=== PATIENT | female | born 1995 | race Hispanic/Latino ===

== ENCOUNTER 2020-05-25 01:00 | Emergency (ER) | payer OTHER ==
[~2020-05-25] VITALS: Ht 165.1 cm; Wt 117.9 kg
--- NOTE | 2020-05-25 01:11 | Emergency Department Note ---
History of Present Illnes History of Present Illness Chief Complaint: Abdominal Complaints History of Present Illness This is a 25 year old female at seven weeks gestation reports "a little spotting" x1 day following urination; pt also reports burning with urination x1 hr and intermittent c ramps x1 week; . Historian: Patient Arrival Mode: Car Onset (how long ago): day(s) (1) Location: suprapubic Quality: cramping/pain Radiation: Reports non-radiation Severity: mild Onset quality: gradual Duration (how long): day(s) (1) Timing of current episode: intermittent Progression: unchanged Chronicity: new Context: Denies recent illness, Denies recent surgery, Denies recent travel Relieving factors: none Exacerbating factors: other (pain with urintation) Associated symptoms: Reports denies other symptoms Treatments prior to arrival: none Past Medical/Family History Physician Review I have reviewed the patient's past medical and family history. Any updates have been documented here. Past Medical History Recent Fever: No Clinical Suspicion of Infectio: No New/Unexplained Change in Ment: No Past Medical History: None Past Surgical History: None, Social History Smoking Cessation: Never Smoker Alcohol Use: None Any Illegal Drug Use: No Other Last Tetanus: UNK Any Pre-Existing Lines (PICC,: No Review of Systems Review of Systems Constitutional: Reports no symptoms EENTM: Reports no symptoms Cardiovascular: Reports no symptoms Respiratory: Reports no symptoms Gastrointestinal: Reports no symptoms Genitourinary: Reports as per HPI Musculoskeletal: Reports no symptoms Integumentary: Reports no symptoms Neurological: Reports no symptoms Psychological: Reports no symptoms Endocrine: Reports no symptoms Hematological/Lymphatic: Reports no symptoms Physical Exam Related Data Allergies: Coded Allergies: No Known Allergies (Unverified , 01/29/20) Triage Vital Signs Vital Signs Date Time Temp Pulse Resp B/P (MAP) Pulse Ox O2 Delivery O2 Flow Rate FiO2 05/25/20 01:04 98.6 80 17 129/82 100 Room Air Vital signs reviewed: Yes Physical Exam CONSTITUTIONAL Constitutional: Present well-developed, Present well-nourished; Absent distressed HENT HENT: Present normocephalic, Present atraumatic, Present oropharynx clear/moist, Present nose normal HENT L/R: Present left ext ear normal, Present right ext ear normal EYES Eyes: Reports PERRL, Reports conjunctivae normal NECK Neck: Present ROM normal PULMONARY Pulmonary: Present effort normal, Present breath sounds normal CARDIOVASCULAR Cardiovascular: Present regular rhythm, Present heart sounds normal, Present capillary refill normal, Present normal rate GASTROINTESTINAL Abdominal: Present soft, Present nontender, Present bowel sounds normal GENITOURINARY Genitourinary: Present exam deferred SKIN Skin: Present warm, Present dry MUSCULOSKELETAL Musculoskeletal: Present ROM normal NEUROLOGICAL Neurological: Present alert, Present oriented x 3, Present no gross motor or sensory deficits PSYCHOLOGICAL Psychological: Present mood/affect normal, Present judgement normal Results Laboratory Laboratory Laboratory Tests Test 05/25/20 01:10 White Blood Count 11.71 x10e3/uL (4.8-10.8) Red Blood Count 4.35 x10e6/uL (3.6-5.1) Hemoglobin 12.5 g/dL (12.0-16.0) Hematocrit 38.0 % (34.2-44.1) Mean Corpuscular Volume 87.4 fL (81-99) Mean Corpuscular Hemoglobin 28.7 pg (28-32) Mean Corpuscular Hemoglobin Concent 32.9 g/dL (31-35) Red Cell Distribution Width 13.3 % (11.7-14.4) Platelet Count 324 x10e3/uL (140-360) Neutrophils (%) (Auto) 65.1 % (38.7-80.0) Lymphocytes (%) (Auto) 22.5 % (18.0-39.1) Monocytes (%) (Auto) 9.6 % (4.4-11.3) Eosinophils (%) (Auto) 1.7 % (0.0-6.0) Basophils (%) (Auto) 0.5 % (0.0-1.0) Neutrophils # (Auto) 7.6 (2.1-6.9) Lymphocytes # (Auto) 2.6 (1.0-3.2) Monocytes # (Auto) 1.1 (0.2-0.8) Eosinophils # (Auto) 0.2 (0.0-0.4) Basophils # (Auto) 0.1 (0.0-0.1) Absolute Immature Granulocyte (auto 0.07 x10e3/uL (0-0.1) Urine Color Yellow (YELLOW) Urine Clarity Clear (CLEAR) Urine pH 7 (5 - 7) Urine Specific [place] 1.020 (1.010-1.025) Urine Protein Negative (NEGATIVE) Urine Glucose (UA) Negative (NEGATIVE) Urine Ketones Negative (NEGATIVE) Urine Blood Small (NEGATIVE) Urine Nitrite Negative (NEGATIVE) Urine Bilirubin Negative (NEGATIVE) Urine Urobilinogen 0.2 mg/dL (0.2 - 1) Urine Leukocyte Esterase Small (NEGATIVE) Urine RBC 6-10 /HPF (0-5) Urine WBC 6-10 /HPF (0-5) Urine Epithelial Cells Many /LPF (NONE) Urine Bacteria Few /HPF (NONE) Human Chorionic Gonadotropin, Quant 33593.41 mIU/mL (0-10) Lab results reviewed: Yes Assessment & Plan Medical Decision Making MDM pt who is approximately 7 weeks gestation with dysuria and spotting, spotting only noted when urinating cbc, quant hcg, ua ordered to eval for uti, anemia, hormone level Assessment & Plan Final Impression: (1) Threatened (2) UTI (urinary tract infection) Depart Disposition: HOME, SELF-CARE Last Vital Signs Date Time Temp Pulse Resp B/P (MAP) Pulse Ox O2 Delivery O2 Flow Rate FiO2 05/25/20 01:04 98.6 80 17 129/82 100 Room Air YONATAN YU MD May 25, 2020 01:11
[2020-05-25 01:24] LABS: BASOPHILS # (AUTO) 0.1 (0.0-0.1); BASOPHILS % 0.5 % (0.0-1.0); EOSINOPHILS # (AUTO) 0.2 (0.0-0.4); EOSINOPHILS % 1.7 % (0.0-6.0); HEMOGLOBIN 12.5 g/dL (12.0-16.0); LYMPHOCYTES # (AUTO) 2.6 (1.0-3.2); LYMPHOCYTES % 22.5 % (18.0-39.1); MEAN CORPUSCULAR HEMOGLOBIN 28.7 pg (28-32); MEAN CORPUSCULAR HGB CONC 32.9 g/dL (31-35); MEAN CORPUSCULAR VOLUME 87.4 fL (81-99); MONOCYTES # (AUTO) 1.1 (0.2-0.8); MONOCYTES % 9.6 % (4.4-11.3); NEUTROPHILS # (AUTO) 7.6 (2.1-6.9); NEUTROPHILS % 65.1 % (38.7-80.0); PLATELET COUNT 324 x10e3/uL (140-360); RED BLOOD COUNT 4.35 x10e6/uL (3.6-5.1); RED CELL DISTRIBUTION WIDTH 13.3 % (11.7-14.4)
[2020-05-25 01:26] LABS: BILIRUBIN,URINE NEGATIVE (NEGATIVE); CLARITY,URINE CLEAR (CLEAR); COLOR,URINE YELLOW (YELLOW); KETONES,URINE NEGATIVE (NEGATIVE); LEUKOCYTE ESTERASE ,URINE SMALL (NEGATIVE); NITRITE,URINE NEGATIVE (NEGATIVE); PROTEIN,URINE DIPSTICK NEGATIVE (NEGATIVE); URINE UROBILINOGEN 0.2 mg/dL (0.2 - 1)
[2020-05-25 01:34] LABS: BACTERIA,URINE FEW /HPF; EPITHELIAL CELLS,URINE MANY /LPF
--- OUTSIDE RECORDS SUMMARY | 2020-05-25 01:39 | XMS REPORT | Continuity of Care Document ---
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 Name Role Phone [employer] Unavailable Un available Problems Problem Status Onset Date Classification Date Reported Comments Source LOF Active 0 12/01/2018 [facility] Decreased movements, unspecified t rimester, not applicable or unspecified 10/29/2018 11/01/2018 [facility] DECREASED FM Active 10/29/2018 [facility] Vomiting of , unspecified 10/23/2018 10/25/2018 [facility] WEAK, DIZZY Active 10/22/2018 [facility] Antepartum hemorrhage, unspecified, unsp ecified trimester 09/15/2018 09/18/2018 [facility] BLEEDING Active 09/15/2018 [facility] Patient currently (finding) Active 03/09/2018 Problem 11/01/2018 [facility] Hypertensive disorder, systemic arterial (disorder) Resolved Problem 11/01/2018 [facility] Medications Medication Details Route Status Patient Instructions Ordering Provider Order Date Source PreNata oral tablet, chewable 1 tab, CHEW, Daily, 0 Refill(s) Active 09/15/2018 [facility] Allergies, Adverse Reactions, Alerts No Known Medication Allergies Immunizations No Data Provided for This Section Results Order Name Results Value Reference Range Date Interpretation Comments Source CHEM PANEL eGFR 143 10/23/2018 Result Comment: The eGFR is calculated using the CKD-EPI formula. In most young, healthy individuals the eGFR will be >90 mL/min/1.73m2. The eGFR declines with age. An eGFR of 60-89 may be normal in some populations, particularly the elderly, for whom the CKD-EPI formula has not been extensively validated. Use of the eGFR is not recommended in the following populations:

Individuals with unstable creatinine concentrations, including patients and those with serious co-morbid conditions.

Patients with extremes in muscle mass or diet.

The data above are obtained from the National Kidney Disease Education Program (NKDEP) which additionally recommends that when the eGFR is used in patients with extremes of body mass index for purposes of drug dosing, the eGFR should be multiplied by the estimated BMI. [facility] CHEM PANEL Albumin Lvl 2.8 3.5 - 5.0 10/23/2018 [facility] CHEM PANEL ALT 17 0 - 65 10/23/2018 [facility] CHEM PANEL Calcium Lvl 8.8 8.5 - 10.5 10/23/2018 [facility] CHEM PANEL Total Protein 6.8 6.4 - 8.4 10/23/2018 [facility] CHEM PANEL Bili Total 0.2 0.2 - 1.3 10/23/2018 [facility] CHEM PANEL Alk Phos 94 39 - 136 10/23/2018 [facility] CHEM PANEL AST 11 0 - 37 10/23/2018 [facility] CHEM PANEL Creatinine Lvl 0.45 0.50 - 1.40 10/23/2018 [facility] CHEM PANEL Sodium Lvl 139 135 - 145 10/23/2018 [facility] CHEM PANEL Glucose Lvl 76 70 - 99 10/23/2018 [facility] CHEM PANEL BUN 9 7 - 22 10/23/2018 [facility] CHEM PANEL Chloride Lvl 107 95 - 109 10/23/2018 [facility] CHEM PANEL CO2 20 24 - 32 10/23/2018 [facility] CHEM PANEL Potassium Lvl 3.7 3.5 - 5.1 10/23/2018 [facility] CHEM PANEL Globulin 4.0 2.7 - 4.2 10/23/2018 [facility] CHEM PANEL AGAP 15.7 10.0 - 20.0 10/23/2018 [facility] CHEM PANEL B/C Ratio 20 6 - 25 10/23/2018 [facility] CHEM PANEL A/G Ratio 0.7 0.7 - 1.6 10/23/2018 [facility] CHEM PANEL Amylase Lvl 62 25 - 115 10/23/2018 [facility] CHEM PANEL Lipase Lvl 130 73 - 393 10/23/2018 [facility] HEMATOLOGY Basophils # 0.1 0.0 - 0.2 10/23/2018 [facility] HEMATOLOGY Eosinophils 0.6 0.0 - 4.0 10/23/2018 [facility] HEMATOLOGY Basophils 0.5 0.0 - 1.0 10/23/2018 [facility] HEMATOLOGY Eosinophils # 0.1 0.0 - 0.5 10/23/2018 [facility] HEMATOLOGY Lymphocytes # 1.8 1.0 - 5.5 10/23/2018 [facility] HEMATOLOGY Neutrophils # 9.7 1.5 - 8.1 10/23/2018 [facility] HEMATOLOGY Monocytes # 1.3 0.0 - 0.8 10/23/2018 [facility] HEMATOLOGY Lymphocytes 13.7 20.0 - 40.0 10/23/2018 [facility] HEMATOLOGY Segs 75.0 45.0 - 75.0 10/23/2018 [facility] HEMATOLOGY Monocytes 10.2 2.0 - 12.0 10/23/2018 [facility] HEMATOLOGY MPV 10.1 7.4 - 10.4 10/23/2018 [facility] HEMATOLOGY MCHC 33.3 32.0 - 36.0 10/23/2018 [facility] HEMATOLOGY RDW 14.1 11.5 - 14.5 10/23/2018 [facility] HEMATOLOGY MCH 28.2 27.0 - 31.0 10/23/2018 [facility] HEMATOLOGY Platelet 284 133 - 450 10/23/2018 [facility] HEMATOLOGY RBC 4.37 4.20 - 5.40 10/23/2018 [facility] HEMATOLOGY WBC 13.0 3.7 - 10.4 10/23/2018 [facility] HEMATOLOGY Hct 37.1 36.0 - 48.0 10/23/2018 [facility] HEMATOLOGY Hgb 12.3 12.0 - 16.0 10/23/2018 [facility] HEMATOLOGY MCV 84.7 80.0 - 98.0 10/23/2018 [facility] Pathology Reports No Data Provided for This Section Diagnostic Reports No Data Provided for This Section Consultation Notes No Data Provided for This Section Discharge Summaries No Data Provided for This Section History and Physicals No Data Provided for This Section Vital Signs Vital Sign Value Date Comments Source Heart Rate 86 10/29/2018 [facility] Systolic (mm Hg) 124 10/29/2018 [facility] Diastolic (mm Hg) 60 10/29/2018 [facility] Heart Rate 100 10/29/2018 [facility] Systolic (mm Hg) 125 10/29/2018 [facility] Diastolic (mm Hg) 56 10/29/2018 [facility] Systolic (mm Hg) 118 10/29/2018 [facility] Diastolic (mm Hg) 70 10/29/2018 [facility] Heart Rate 105 10/29/2018 [facility] Temperature Oral (F) 98.7 F 10/29/2018 [facility] Respitory Rate 18 10/29/2018 [facility] Weight 125 10/29/2018 [facility] BMI Calculated 45.86 10/29/2018 [facility] Height 165.1 cm 10/29/2018 [facility] Systolic (mm Hg) 121 10/23/2018 [facility] Diastolic (mm Hg) 57 10/23/2018 [facility] Systolic (mm Hg) 119 10/23/2018 [facility] Diastolic (mm Hg) 62 10/23/2018 [facility] Heart Rate 78 10/23/2018 [facility] Systolic (mm Hg) 119 10/23/2018 [facility] Diastolic (mm Hg) 60 10/23/2018 [facility] Heart Rate 78 10/23/2018 [facility] Respitory Rate 18 10/23/2018 [facility] Temperature Oral (F) 97.8 F 10/23/2018 [facility] Height 165.1 cm 10/23/2018 [facility] Heart Rate 92 10/23/2018 [facility] BMI Calculated 45.52 10/23/2018 [facility] Weight 124.091 10/23/2018 [facility] Systolic (mm Hg) 95 09/15/2018 [facility] Diastolic (mm Hg) 51 09/15/2018 [facility] Systolic (mm Hg) 105 09/15/2018 [facility] Diastolic (mm Hg) 55 09/15/2018 [facility] Systolic (mm Hg) 119 09/15/2018 [facility] Diastolic (mm Hg) 54 09/15/2018 [facility] Weight 125 09/15/2018 [facility] Temperature Oral (F) 99.1 F 09/15/2018 [facility] Respitory Rate 18 09/15/2018 [facility] BMI Calculated 45.86 09/15/2018 [facility] Height 165.1 cm 09/15/2018 [facility] Heart Rate 104 09/15/2018 [facility] Encounters Location Location Details Encounter Type Encounter Number Reason For Visit Attending Provider ADM Date DC Date Status Source [facility] Emergency [id number] Gabriella Mansfield 09/15/2018 09/15/2018 [facility] Emergency [id number] Sarika Hernandez 10/23/2018 10/23/2018 [facility] Emergency [id number] Hugh Caiwell 10/29/2018 10/29/2018 [facility] Procedures No Data Provided for This Section Assessment and Plan No Data Provided for This Section Plan of Care No Data Provided for This Section Social History Social History Date Source Social History TypeResponse Substance Abuse Use: None. Sexual Sexually active: Yes. Alcohol Never Smoking Status Never smoker; Exposure to Tobacco Smoke None; Cigarette Smoking Last 365 Days No; Reg Smoking Cessation Counseling No entered on: 10/29/18 09/15/2018 [facility] Family History No Data Provided for This Section Advance Directives No Data Provided for This Section Functional Status No Data Provided for This Section
--- OUTSIDE RECORDS SUMMARY | 2020-05-25 01:39 | XMS REPORT | Continuity of Care Document ---
Author Author [facility] t Organization [facility] Address [address] [place] [address] Phone Unavailable Care Team Providers Care Rn Charge Name Role Phone NONSTAFF PCP Unavailable Mike LONGORIA, Juanpablo Driscoll Attphys Rodríguez COPPOLA, Melania Attphys Unavailable Pati LONGORIA, Fahad Attphys Edna SAMUEL, Hyun Attphys Unavailable Sameer RAY, Lorenzo Attphys Jasper LONGORIA, Brittany Easley Attphys Valentín LONGORIA, Tobias Marinelli Attphys KELTON BONE M.D. Attphys Unavailable CAFETERIA TEAM LEADER, ROOM1 Attphys Unavailable CAFETERIA TEAM LEADER, ROOM3 Attphys Unavailable RONEN BENSON NP Attphys Unavailable Leobardo Edward Attphys Arlene Hernandez Attphys , PROVIDER Attphys Unavailable Monique Mansfield Attphys CAFETERIA TEAM LEADER, ROOM4 Attphys Unavailable CHER SIDDIQI M.D. Attphys Unavailable Payers Payer Name Policy Type Policy Number Effective Date Expiration Date S jen UHCUMR HM BENEFIT [id number] 2018-PresentPPO [id number] 2018 00:00:00 [place] CIGNACIGNA/ALLEGIANCE HM BENEFIT [id number] 2019-Pr esentPPO [id number] 2020 00:00:00 [place] Umr Ppo [id number] 2018 00:00:00 [facility] Problems Condition Name Condition Details Condition Category Status Onset Date Resolution Date Last Treatment Date Treating Clinician Comments Source LOF LOF Active 12/01/2018 [facility] Diagnosis Active 2018-12-01 00:00:00 2018-12-30 09:05:00 Jana Burnette DECREASED FM DECR EASED FM Active 10/29/2018 [facility] Diagnosis Active 2018-10-29 00:00:00 2019-06-10 14:46:00 Jana Burnette WEAK, DIZZY WEAK , DIZZY Active 10/22/2018 [facility] Diagnosis Active 2018-10-22 00:00:00 2019-07-28 15:32:00 Jana Burnette BLEEDING BLEE DING Active 09/15/2018 [facility] Diagnosis Active 2018-09-15 00:00:00 2018-09-22 08:53:00 [facility] Patient currently (finding) Patient currently (finding) Active 03/09/2018 Problem 11/01/2018 [facility] Problem Active 2018-03-09 00:00:00 2018-11-01 00:42:11 Jana Burnette Fatigue Fatigue Disease Active 2016-12-26 00:00:00 [facility] [place] Genital herpes simplex Problem Active [facility] Urinary tract infection Problem Active [facility] Chronic hypertension Chronic hypertension Problem Active [facility] History of Encounter for confirmation of test result with physical examination History of Encounter for confirmation of test result with physical examination [facility] of First trimester History of First trimes ter Problem Resolved [facility] Encounter for supervision of normal first in third trimester Encounter for supervision of normal first in third trimester Problem Active [facility] History of candidal vulvovaginitis History of candidal vulvovagi nitis Problem Resolved [facility] Heart burn Heart burn Problem Active [facility] Breech presentation, single or unspecified fetus Breec h presentation, single or unspecified fetus Problem Active [facility] Nausea and vomiting of , antepartum Nausea an d vomiting of , antepartum Problem Active [facility] Postoperative examination Postoperative examination Problem Active [facility] Encounter for visit Encounter for visit Problem Active [facility] Nexplanon insertion Nexplanon insertion Problem Active [facility] Decreased movements, unspecified trimester, not applicable or unspecified Decreased movements, unspecified trimester, not applicable or unspecified 10/29/2018 11/01/2018 [facility] Problem 2018-10-29 05:00:00 2018-11-01 00:42:11 2018-11-01 00:42:11 [facility] Vomiting of , unspecified Vomiting of , unspecified 10/23/2018 10/25/2018 [facility] Problem 2018-10-23 06:00:00 2018-10-25 22:16:30 2018-10-25 22:16:30 [facility] Antepartum hemorrhage, unspecified, unspecified trimes ter Antepartum hemorrhage, unspecified, unspecified trimester 09/15/2018 09/18/2018 [facility] Problem 2018-09-15 06:00:00 2018-09 02:09:39 2018-09-18 02:09:39 [facility] Allergies, Adverse Reactions, Alerts Allergy Name Allergy Type Status Severity Reaction(s) Onset Date Inacti ve Date Treating Clinician Comments Source No Known Allergies DA Active U 2011-12-12 00:00:00 [facility] Family History Family Member Diagnosis Comments Start Date Stop Date Source Mother Family history of hypertension [facility] Father Family history of hypertension [facility] Father Family history of diabetes mellitus [facility] Natural brother No Known Problems [place] Natural father Diabetes [facility] thodist Natural father Hypertension [place] Druze Natural mother Hypertension Ara[place]jo Druze Natural mother Thyroid disease [place] Natural sister No Known Problems Julia bueno Druze Social History Social Habit Start Date Stop Date Quantity Comments Source Sex Assigned At Julia bueno Druze Tobacco use and exposure 2019-10-28 00:00:00 2019-10-28 00:00:00 June r used [place] Alcohol intake 2019-10-28 00:00:00 2019-10-28 00:00:00 Current drinker of alcohol (finding) [facility] Social History 2018-09-15 19:49:12 2018-09-15 19:49:12 [facility] Alcohol Comment 2016-12-26 00:00:00 2016-12-26 00:00:00 social [place] Smoking Status Start Date Stop Date Source Never smoker Van nunez Medications Ordered Medication Name Filled Medication Name Start Date Stop Da te Current Medication? Ordering Clinician Indication Dosage Frequency Signature (SIG) Comments Components Source cholecalciferol, vitamin D3, 1,250 mcg (50,000 unit) capsule 2020-05-02 00:00:00 Yes TAKE 1 CAPSULE BY MOUTH ONCE A WEEK [place] cholecalciferol, vitamin D3, 1,250 mcg (50,000 unit) capsule 2020-03-13 00:00:00 2020-05-02 00:00:00 No 36815H Q7D TAKE 1 CAPSULE (50,000 UNITS TOTAL) BY MOUTH ONCE A WEEK FOR 60 DAYS. [facility] [place] cholecalciferol, vitamin D3, 1,250 mcg (50,000 unit) capsule 2020-01-20 00:00:00 2020-03-13 00:00:00 No [id number] Q7D Take 1 capsule (50,000 Units total) by mouth once a week for 60 days. [place] acetaminophen (TYLENOL EXTRA STRENGTH) 500 MG tablet 2019-05-29 00:00:00 2019-06-28 23:59:00 No 1000mg Q6H Take 2 tablets (1,000 mg total) by mouth every 6 (six) hours as needed for moderate pain for up to 30 days. [place] ibuprofen (ADVIL) 600 MG tablet 2019-05-29 00:00:00 23:59:00 No 600mg Q8H Take 1 tablet (600 m g total) by mouth every 8 (eight) hours as needed for moderate pain for up to 30 days. Julia badilloruchi Castorena lidocaine 3 % cream 2019-05-29 00:00:00 2019-06-28 23:59:00 No 1{application} QD Apply 1 application topically daily for 30 days. [place] valACYclovir (VALTREX) 1000 MG tablet 2019-05-29 00:00 :00 2019-06-08 23:59:00 No 1000mg Q.5D Take 1 tablet ( 1,000 mg total) by mouth 2 (two) times a day for 10 days. [place] sulfamethoxazole-trimethoprim (BACTRIM DS) 800-160 mg per ta blet 2019-05-29 00:00:00 2019-06-05 23:59:00 No 1{tbl} Q.5D Take 1 tablet by mouth 2 (two) times a day for 7 days. smx-tmp DS (BACTRIM) 800-160 mg tabs (1tab q12 D10) [place] PreNata oral tablet, chewable 2018-09-15 19:51:00 Yes 1 tab, CHEW, Daily, 0 Refill(s) [facility] Immunizations Ordered Immunization Name Filled Immunization Name Date Status Comments Source Tdap (Adacel) 2018-10-15 00:00:00 Completed [facility] Fluzone Quadrivalent 0.5 ML Intramuscular Suspension Prefill ed Syringe 2018-05-18 00:00:00 Completed [facility] Vital Signs Vital Name Observation Time Observation Value Comments Source Weight 2020-01-29 02:07:00 260 [lb_av] [facility] BMI (Body Mass Index) 2020-01-29 02:07:00 43.3 kg/m2 [facility] Systolic blood pressure 2019-10-28 14:44:00 113 mm[Hg] [place] Diastolic blood pressure 2019-10-28 14:44:00 76 mm[Hg] [place] Heart rate 2019-10-28 14:44:00 92 /min [place] Body height 2019-10-28 14:44:00 165.1 cm [place] Body weight 2019-10-28 14:44:00 120.657 kg [place] BMI 2019-10-28 14:44:00 44.26 kg/m2 [place] Body temperature 2019-05-29 09:23:00 36.83 Mikayla [place] Respiratory rate 2019-05-29 09:23:00 18 /min [place] Oxygen saturation in Arterial blood by Pulse oximetry 2018-08 09:23:00 98 /min [place] Druze BP Systolic 2019-01-12 13:57:00 129 mm[Hg] Location: RUE; Positi on: Sitting [facility] BP Diastolic 2019-01-12 13:57:00 85 mm[Hg] Location: RUE; Positi on: Sitting [facility] Height 2019-01-12 13:57:00 65 [in_us] [facility] Weight 2019-01-12 13:57:00 256.4 [lb_av] [facility] Body Mass Index Calculated 2019-01-12 13:57:00 42.67 kg/m2 [facility] Temperature 2019-01-12 13:57:00 98.6 [degF] Method: Oral [facility] Heart Rate 2019-01-12 13:57:00 81 /min [facility] BP Systolic 2018-12-08 15:39:00 117 mm[Hg] Location: RUE; Positi on: Sitting [facility] BP Diastolic 2018-12-08 15:39:00 81 mm[Hg] Location: RUE; Positi on: Sitting [facility] Height 2018-12-08 15:39:00 65 [in_us] [facility] Weight 2018-12-08 15:39:00 263.25 [lb_av] [facility] Body Mass Index Calculated 2018-12-08 15:39:00 43.81 kg/m2 [facility] Temperature 2018-12-08 15:39:00 99 [degF] Method: Oral [facility] Heart Rate 2018-12-08 15:39:00 91 /min [facility] ty [facility] BP Systolic 2018-11-30 13:28:00 132 mm[Hg] Location: RUE; Positi on: Sitting [facility] BP Diastolic 2018-11-30 13:28:00 86 mm[Hg] Location: RUE; Positi on: Sitting [facility] Height 2018-11-30 13:28:00 65 [in_us] [facility] Weight 2018-11-30 13:28:00 277 [lb_av] [facility] Body Mass Index Calculated 2018-11-30 13:28:00 46.1 kg/m2 [facility] Heart Rate 2018-11-30 13:28:00 123 /min [facility] BP Systolic 2018-11-09 13:46:00 106 mm[Hg] Location: RUE; Positi on: Sitting [facility] BP Diastolic 2018-11-09 13:46:00 71 mm[Hg] Location: RUE; Positi on: Sitting [facility] Height 2018-11-09 13:46:00 65 [in_us] [facility] Weight 2018-11-09 13:46:00 275.2 [lb_av] [facility] Body Mass Index Calculated 2018-11-09 13:46:00 45.8 kg/m2 [facility] Heart Rate 2018-11-09 13:46:00 106 /min [facility] Heart Rate 2018-10-29 20:30:00 [facility] Systolic (mm Hg) 2018-10-29 20:30:00 Maurice rial Vasile Diastolic (mm Hg) 2018-10-29 20:30:00 Mem [facility] Heart Rate 2018-10-29 20:00:00 [facility] Systolic (mm Hg) 2018-10-29 20:00:00 Maurice rial [facility] Diastolic (mm Hg) 2018-10-29 20:00:00 Mem [facility] Systolic (mm Hg) 2018-10-29 19:17:00 Maurice rial [facility] Diastolic (mm Hg) 2018-10-29 19:17:00 [facility] Heart Rate 2018-10-29 19:17:00 [facility] Temperature Oral (F) 2018-10-29 19:17:00 98.7 F [facility] Respitory Rate 2018-10-29 19:17:00 [facility] Weight 2018-10-29 19:17:00 [facility] BMI Calculated 2018-10-29 19:17:00 [facility] Height 2018-10-29 19:17:00 165.1 cm [facility] BP Systolic 2018-10-29 13:21:00 123 mm[Hg] Location: RUE; Positi on: Sitting [facility] BP Diastolic 2018-10-29 13:21:00 84 mm[Hg] Location: RUE; Positi on: Sitting [facility] Height 2018-10-29 13:21:00 65 [in_us] [facility] Weight 2018-10-29 13:21:00 278.125 [lb_av] [facility] Body Mass Index Calculated 2018-10-29 13:21:00 46.28 kg/m2 [facility] Temperature 2018-10-29 13:21:00 98.3 [degF] Method: Oral [facility] Heart Rate 2018-10-29 13:21:00 106 /min [facility] Systolic (mm Hg) 2018-10-23 06:30:00 Maurice rial [facility] Diastolic (mm Hg) 2018-10-23 06:30:00 Mem o[facility] Systolic (mm Hg) 2018-10-23 04:33:00 Maurice [facility] [place] Diastolic (mm Hg) 2018-10-23 04:33:00 Mem o[facility] Heart Rate 2018-10-23 04:33:00 [facility] Systolic (mm Hg) 2018-10-23 03:30:00 Maurice rial [facility] Diastolic (mm Hg) 2018-10-23 03:30:00 [facility] [place] Heart Rate 2018-10-23 03:30:00 [facility] Respitory Rate 2018-10-23 02:47:00 Skinny al Vas[place] Temperature Oral (F) 2018-10-23 02:47:00 97.8 F [facility] Height 2018-10-23 02:47:00 165.1 cm [facility] Heart Rate 2018-10-23 02:47:00 [facility] BMI Calculated 2018-10-23 02:47:00 [facility] [place] Weight 2018-10-23 02:47:00 [facility] BP Systolic 2018-10-15 13:36:00 118 mm[Hg] Location: RUE; Positi on: Sitting [facility] BP Diastolic 2018-10-15 13:36:00 87 mm[Hg] Location: RUE; Positi on: Sitting [facility] Height 2018-10-15 13:36:00 65 [in_us] [facility] Weight 2018-10-15 13:36:00 276 [lb_av] [facility] Body Mass Index Calculated 2018-10-15 13:36:00 45.93 kg/m2 [facility] Temperature 2018-10-15 13:36:00 98.7 [degF] Method: Oral [facility] Heart Rate 2018-10-15 13:36:00 118 /min [facility] Systolic (mm Hg) 2018-09-15 21:00:00 Maurice rial [place] Diastolic (mm Hg) 2018-09-15 21:00:00 Mem orial [place] Systolic (mm Hg) 2018-09-15 20:30:00 Maurice [facility] [place] Diastolic (mm Hg) 2018-09-15 20:30:00 Mem [facility] [place] Systolic (mm Hg) 2018-09-15 20:00:00 Maurice [facility] [place] Diastolic (mm Hg) 2018-09-15 20:00:00 Mem [facility] Weight 2018-09-15 19:40:00 [facility] Temperature Oral (F) 2018-09-15 19:40:00 99.1 F [facility] Respitory Rate 2018-09-15 19:40:00 Skinny al [facility] BMI Calculated 2018-09-15 19:40:00 Skinny [facility] [place] Height 2018-09-15 19:40:00 165.1 cm [facility] Heart Rate 2018-09-15 19:40:00 [facility] BP Systolic 2018-09-10 11:32:00 120 mm[Hg] Location: GUSTAVO Womack on: Sitting [facility] BP Diastolic 2018-09-10 11:32:00 83 mm[Hg] Location: GUSTAVO Womack on: Sitting [facility] Height 2018-09-10 11:32:00 65 [in_us] [facility] Weight 2018-09-10 11:32:00 275 [lb_av] [facility] Body Mass Index Calculated 2018-09-10 11:32:00 45.76 kg/m2 [facility] Heart Rate 2018-09-10 11:32:00 112 /min [facility] BP Systolic 2018-08-13 11:47:00 115 mm[Hg] Location: LUE; Positi on: Sitting [facility] BP Diastolic 2018-08-13 11:47:00 78 mm[Hg] Location: LUE; Positi on: Sitting [facility] Height 2018-08-13 11:47:00 65 [in_us] [facility] Weight 2018-08-13 11:47:00 274.125 [lb_av] [facility] Body Mass Index Calculated 2018-08-13 11:47:00 45.62 kg/m2 [facility] Temperature 2018-08-13 11:47:00 98.9 [degF] Method: Oral [facility] Heart Rate 2018-08-13 11:47:00 106 /min [facility] BP Systolic 2018-07-14 11:18:00 128 mm[Hg] Location: RLE; Positi on: Sitting [facility] BP Diastolic 2018-07-14 11:18:00 82 mm[Hg] Location: RLE; Positi on: Sitting [facility] Height 2018-07-14 11:18:00 65 [in_us] [facility] Weight 2018-07-14 11:18:00 270 [lb_av] [facility] Body Mass Index Calculated 2018-07-14 11:18:00 44.93 kg/m2 [facility] Temperature 2018-07-14 11:18:00 98 [degF] [facility] Heart Rate 2018-07-14 11:18:00 99 /min [facility] BP Systolic 2018-06-18 12:17:00 125 mm[Hg] Location: LUE; Positi on: Sitting [facility] BP Diastolic 2018-06-18 12:17:00 84 mm[Hg] Location: LUE; Positi on: Sitting [facility] Height 2018-06-18 12:17:00 65 [in_us] [facility] Weight 2018-06-18 12:17:00 266 [lb_av] [facility] Body Mass Index Calculated 2018-06-18 12:17:00 44.27 kg/m2 [facility] Temperature 2018-06-18 12:17:00 98.2 [degF] Method: Oral [facility] Heart Rate 2018-06-18 12:17:00 111 /min [facility] BP Systolic 2018-05-18 16:07:00 128 mm[Hg] Location: RUE; Positi on: Sitting [facility] BP Diastolic 2018-05-18 16:07:00 83 mm[Hg] Location: RUE; Positi on: Sitting [facility] Height 2018-05-18 16:07:00 65 [in_us] [facility] Weight 2018-05-18 16:07:00 270.8 [lb_av] [facility] Body Mass Index Calculated 2018-05-18 16:07:00 45.06 kg/m2 [facility] Temperature 2018-05-18 16:07:00 98.5 [degF] Method: Oral [facility] Heart Rate 2018-05-18 16:07:00 94 /min [facility] BP Systolic 2018-05-04 10:48:00 127 mm[Hg] Location: RUE; Positi on: Sitting [facility] BP Diastolic 2018-05-04 10:48:00 84 mm[Hg] Location: RUE; Positi on: Sitting [facility] Height 2018-05-04 10:48:00 65 [in_us] [facility] Weight 2018-05-04 10:48:00 271.25 [lb_av] [facility] Body Mass Index Calculated 2018-05-04 10:48:00 45.14 kg/m2 [facility] Temperature 2018-05-04 10:48:00 98.2 [degF] Method: Tympanic [facility] Heart Rate 2018-05-04 10:48:00 87 /min [facility] Respiration Rate 2018-05-04 10:48:00 16 /min [facility] Procedures Procedure Date / Time Performed Performing Clinician Donald oliver COVID-19 QUALITATIVE PCR 2020-03-20 13:17:00 AslamFahad COVID-19 QUALITATIVE PCR 2020-02-25 13:11:00 AslamFahad CYCLIC CITRULLINATED PEPTIDE AB, IGG 2019-12-22 15:28:00 AslamFahad RHEUMATOID FACTOR 2019-12-22 15:28:00 Aslam, Ismamirthajalyn Araujo M ethodist OSBALDO IFA, W/REFL TO TITER/PATTERN/CASCADE 2019-12-22 15:28:00 Asl am, Fahad Araujo Druze THYROID STIMULATING HORMONE 2019-12-22 15:28:00 Aslam, Fahad Araujo Druze T4, FREE 2019-12-22 15:28:00 Aslam, tessa Araujo Met hodist T3, FREE 2019-12-22 15:28:00 Aslam, tessa Araujo Met hodist COMPREHENSIVE METABOLIC PANEL 2019-12-22 15:28:00 Aslam, Ismajames deon Araujo Druze CBC WITH PLATELET AND DIFFERENTIAL 2019-12-22 15:28:00 Aslam, Ra bahenated Van Espinalist VITAMIN D 25 HYDROXY LEVEL 2019-12-22 15:28:00 Aslam, keonjin Araujo Druze VITAMIN B12 LEVEL 2019-12-22 15:28:00 Aslam, Fahad Araujo Carol ethodist CREATINE KINASE, TOTAL (CPK) 2019-12-22 15:28:00 Aslam, Charles Espinalist THINPREP TIS PAP REFLEX HPV MRNA E6/E7 2019-09-15 14:49:00 Americo Llanos CHLAMYDIA/N. GONORRHOEAE RNA, TMA 2019-09-15 14:49:00 Nohemy Mckeon TRICHOMONAS VAGINALIS RNA, QUALITATIVE, TMA, PAP VIAL 09-15 14:49:00 Americo Mckeon URINE CULTURE 2019-05-29 08:52:00 Peter Laura Pr thodist GRAM STAIN 2019-05-29 08:52:00 Peter Laura Pr thodist URINALYSIS SCREEN AND MICROSCOPY, WITH REFLEX TO CULTURE 201 04-27-12 08:26:00 Peter Laura HCG QUALITATIVE, URINE SCREEN 2019-05-29 08:26:00 Peter Laura [Q] STREPTOCOCCUS, GROUP B CULTURE (Genital Strep Screen) 2 00:00:00 [facility] [QLH] RPR 2018-11-30 00:00:00 [facility] [QL] CBC (INCLUDES DIFF/PLT) 2018-11-30 00:00:00 [facility] [Q] HIV AB, HIV 1/2, EIA, WITH REFLEXES 2018-11-30 00:00:00 [facility] [QH] GLUCOSE, GESTATIONAL SCREEN (50G)-130 CUTOFF 2018-09-10 00: 00:00 [facility] [QL] CBC (INCLUDES DIFF/PLT) 2018-09-10 00:00:00 [facility] . [facility] - Affirm VPIII (BV Panel) 2018-07-15 00:00:00 [facility] [Q] QUAD SCREEN 2018-07-14 00:00:00 [facility] [[facility]] HEPATIC FUNCTION PANEL 2018-05-18 00:00:00 [facility] [QL] CBC (INCLUDES DIFF/PLT) 2018-05-18 00:00:00 [facility] [QL] URIC ACID 2018-05-18 00:00:00 [facility] [QL] LACTATE DEHYDROGENASE ISOENZYME PANEL 2018-05-18 00:00:00 [facility] [L] Creatine, Serum 2018-05-18 00:00:00 [facility] [QH] PROTEIN, TOTAL W/CREAT, RANDOM URINE 2018-05-18 00:00:00 [facility] [QL] ABO GROUP AND RH TYPE 2018-05-04 00:00:00 [facility] [QL] ANTIBODY SCREEN, RBC W/REFL ID, TITER AND AG 2018-05-04 00 :00:00 [facility] [QL] CBC (INCLUDES DIFF/PLT) 2018-05-04 00:00:00 [facility] History of Section [facility] Plan of Care Planned Activity Planned Date Details Comments Source Future Scheduled Test 2022-09-15 00:00:00 Screening for shobha gnant neoplasm of cervix (procedure) [code = 827611019] Van Methodis t Future Scheduled Test 2020-09-15 00:00:00 CHLAMYDIA SCREENIN G [code = CHLAMYDIA SCREENING] [place] Future Scheduled Test 2020-03-18 00:00:00 INFLUENZA VACCINE [code = INFLUENZA VACCINE] [place] Diagnostic Test Pending 2018-07-15 00:00:00 . [facility] - Affir m VPIII (BV Panel) [code = . [facility] - Affirm VPIII (BV Panel)] [facility] Instructions Genital Herpes - Female [facility] Instructions Urinary Tract Infection - Women [facility] Encounters Start Date/Time End Date/Time En[facility] ID Source 2020-03-20 00:00:00 2020-03-20 00:00:00 Outpatient BREE MENDOZA [facility] [id number] [facility] 2020-02-25 00:00:00 2020-02-25 00:00:00 Outpatient BREE MENDOZA [facility] [id number] [facility] 2020-02-24 00:00:00 2020-02-24 00:00:00 Outpatient BREE MENDOZA [facility] [id number] [facility] 2020-01-29 02:04:00 2020-01-29 03:15:00 Departed Emergency Room [facility] [id number] [facility] 2019-12-22 00:00:00 2019-12-22 00:00:00 Outpatient BREE MENDOZA [facility] [id number] [facility] 2019-10-28 00:00:00 2019-10-28 00:00:00 Outpatient AMERICO MCKEON [facility] [id number] [facility] 2019-05-29 00:00:00 2019-05-29 00:00:00 Emergency PETER LAURA H 064 [id number] [facility] 2019-05-28 22:53:00 2019-05-28 22:53:00 Emergency E [facility] 7502 [facility] 2019-01-12 13:30:00 2019-01-12 13:30:00 Appointment; KELTON BONE M.D. MONTEALEGRE, ALVARO, M.D. [facility] [id number] [facility] 2018-12-24 15:45:00 2018-12-24 15:45:00 Appointment; SMITHA , Lucinda MELARA ALVARO, M.D. [facility] [id number] [facility] 2018-12-14 10:45:00 2018-12-14 10:45:00 Appointment; KELTON BONE M.D. MONTEALEGRE, ALVARO, M.D. UTP [facility] [id number] [facility] 2018-12-08 15:45:00 2018-12-08 15:45:00 Appointment; KELTON BONE M.D. MONTEALEGRE, ALVARO, M.D. [facility] [id number] [facility] 2018-12-01 20:33:00 2018-12-01 17:10:00 Inpatient E [facility] 7503 [facility] 2018-12-01 15:30:00 2018-12-01 15:30:00 Appointment; CAFETERIA TEAM LEADER, ROOM1 CAFETERIA TEAM LEADER, ROOM1 [facility] [id number] [facility] 2018-11-30 13:15:00 2018-11-30 13:15:00 Appointment; KELTON BONE M.D. MONTEALEGRE, ALVARO, M.D. [facility] [place] [id number] [facility] 2018-11-27 10:15:00 2018-11-27 10:15:00 Appointment; KELTON BONE M.D. MONTEALEGRE, ALVARO, M.D. [facility] [id number] [facility] 2018-11-26 11:15:00 2018-11-26 11:15:00 Appointment; CAFETERIA TEAM LEADER, ROOM3 CAFETERIA TEAM LEADER, ROOM3 [facility] [id number] [facility] 2018-11-09 13:30:00 2018-11-09 13:30:00 Appointment; HOLA BENSON NP KELLER, MARYJANE, NP [facility] [place] [id number] [facility] 2018-10-29 14:12:00 2018-10-29 16:07:00 Outpatient Hugh Edward [facility] [id number] 2018-10-29 14:12:00 2018-10-29 14:12:00 Emergency E [facility] 7502 [facility] 2018-10-29 13:00:00 2018-10-29 13:00:00 Appointment; HOLA BENSON NP KELLER, MARYJANE, NP [facility] [place] [id number] [facility] 2018-10-22 20:33:00 2018-10-23 00:56:00 Outpatient Sena Hernandez [facility] [id number] 2018-10-22 20:33:00 2018-10-22 20:33:00 [facility]01 [facility] 2018-10-15 15:00:00 2018-10-15 15:00:00 Appointment; CAFETERIA TEAM LEADER, ROOM1 CAFETERIA TEAM LEADER, ROOM1 [facility] [id number] [facility] 2018-10-15 14:00:00 2018-10-15 14:00:00 Appointment; , PRO VIDER , PROVIDER [facility] [id number] [facility] 2018-10-15 13:45:00 2018-10-15 13:45:00 Appointment; KELTON BONE M.D. MONTEALEGRE, ALVARO, M.D. [facility] [place] [id number] [facility] 2018-09-15 13:31:00 2018-09-15 15:21:00 Outpatient Gabriella Mansfield [facility] [id number] 2018-09-14 13:00:00 2018-09-14 13:00:00 Appointment; CAFETERIA TEAM LEADER, ROOM4 CAFETERIA TEAM LEADER, ROOM4 [facility] [id number] [facility] 2018-09-10 11:15:00 2018-09-10 11:15:00 Appointment; KELTON BONE M.D. MONTEALEGRE, ALVARO, M.D. [facility] [place] [id number] [facility] 2018-08-17 13:00:00 2018-08-17 13:00:00 Appointment; CAFETERIA TEAM LEADER, ROOM3 CAFETERIA TEAM LEADER, ROOM3 [facility] [id number] [facility] 2018-08-13 11:30:00 2018-08-13 11:30:00 Appointment; KELTON BONE M.D. MONTEALEGRE, ALVARO, M.D. [facility] [place] [id number] [facility] 2018-07-14 11:00:00 2018-07-14 11:00:00 Appointment; KELTON BONE M.D. MONTEALEGRE, ALVARO, M.D. [facility] [place] [id number] [facility] 2018-06-18 11:30:00 2018-06-18 11:30:00 Appointment; KELTON BONE M.D. MONTEALEGRE, ALVARO, M.D. [facility] [place] [id number] [facility] 2018-05-18 15:45:00 2018-05-18 15:45:00 Appointment; KELTON BONE M.D. MONTEALEGRE, ALVARO, M.D. [facility] [id number] [facility] 2018-05-15 14:00:00 2018-05-15 14:00:00 Appointment; CAFETERIA TEAM LEADER, ROOM3 CAFETERIA TEAM LEADER, ROOM3 [facility] [id number] [facility] 2018-05-04 11:15:00 2018-05-04 11:15:00 Appointment; CHER DALE M.D. WAINWRIGHT, ALEXANDER, M.D. [facility] [address] [id number] [facility] Results Test Description Test Time Test Comments Results Result Comments Source Urine color determination 2020-01-29 02:10:00 Test Item Urine Color (test code = 5778-6) YELLOW YELLOW [facility] [id number] 02:10:00* Test Item Value Reference Range Interpretation Comments Urine Clarity (test code = 38578-6) CLEAR CLEAR [facility] by Test strip 2020-01-29 02:10:00* Test Item Value Reference Range Interpretation Comments Urine Specific Elysian (test code = 5811-5) >=1.030 1.010-1.02 5 [facility] pH measurement by automated test [id number] 02:10:00* Test Item Value Reference Range Interpretation Comments Urine pH (test code = 56259-8) 7 5-7 [facility] leukocyte esterase detection by tnabfhtf4017-42-80 02:10:00* Test Item Value Reference Range Interpretation Comments Urine Leukocyte Esterase (test code = 5799-2) TRACE NEGATIVE [facility] Center[facility] nitrite ppyiwnsew8584-06-20 02:10:00* Test Item Value Reference Range Interpretation Comments Urine Nitrite (test code = 88681-6) NEGATIVE NEGATIVE [facility] protein measurement by test strip (mass/volume)2020-01-29 02:10:00* Test Item Value Reference Range Interpretation Comments Urine Protein (test code = 5804-0) NEGATIVE NEGATIVE [facility] glucose iionyvcnk5571-14-88 02:10:00* Test Item Value Reference Range Interpretation Comments Urine Glucose (UA) (test code = 2349-9) NEGATIVE NEGATIVE [facility] CenterU[facility] ketones detection by automated test elhfd7502-54-78 02:10:00* Test Item Value Reference Range Interpretation Comments Urine Ketones (test code = 50324-1) NEGATIVE NEGATIVE [facility] CenterUrine urobilinogen measurement by test strip (mass/volume)2020-01-29 02:10:00* Test Item Value Reference Range Interpretation Comments Urine Urobilinogen (test code = 32799-5) 0.2 0.2-1 [facility] total bilirubin measurement (mass/volume)2020-01-29 02:10:00* Test Item Value Reference Range Interpretation Comments Urine Bilirubin (test code = 1978-6) NEGATIVE NEGATIVE [facility] CenterU[facility] erythrocytes rkemqmiyk6162-35-33 02:10:00* Test Item Value Reference Range Interpretation Comments Urine Blood (test code = 81182-9) TRACE NEGATIVE [facility] CenterAutomated urine sediment leukocyte count by microscopy (number/high power field)2020-01-29 02:10:00* Test Item Value Reference Range Interpretation Comments Urine WBC (test code = 5821-4) 6-10 0-5 [facility] CenterErythrocytes detection in urine sediment by light oadxcegmph1490-12-35 02:10:00* Test Item Value Reference Range Interpretation Comments Urine RBC (test code = 86089-2) 6-10 0-5 [facility] CenterBacteria detection in urine sediment by light ftlwilcgpj1178-41-68 02:10:00* Test Item Value Reference Range Interpretation Comments Urine Bacteria (test code = 31128-4) MODERATE NONE [facility] CenterEpithelial cells detection in urine sediment by light ofmoqrizqj5417-97-28 02:10:00* Test Item Value Reference Range Interpretation Comments Urine Epithelial Cells (test code = 22266-4) MANY NONE [facility] CenterYeast detection in urine sediment by light uwbzefdbil0984-26-23 02:10:00* Test Item Value Reference Range Interpretation Comments Urine Yeast (test code = 22764-7) FEW NONE [facility] CenterUrine human chorionic gonadotropin (hCG) wuuxxiyqk6962-00-40 02:10:00* Test Item Value Reference Range Interpretation Comments Urine Test (test code = 2106-3) NEGATIVE NEGATIVE [facility] CenterComprehensive metabolic ccjij4284-99-10 13:21:00* Test Item Value Reference Range Interpretation Comments Glucose (test code = 2345-7) 96 mg/dL 65-99 Fasting reference interval BUN (test code = 3094-0) 9 mg/dL 7-25 Creatinine (test code = 2160-0) 0.51 mg/dL 0.5-1.1 EGFR Non-Afr. Afghan (test code = 2775) 136 > OR = 60 mL /min/1.73m2 EGFR (test code = 87241-2) 157 > OR = 60 mL/min/1.73m2 BUN/creatinine ratio (test code = 3097-3) NOT APPLICABLE 6- 22 (mark c) Sodium (test code = 2951-2) 138 mmol/L 135-146 Potassium (test code = 2823-3) 4.1 mmol/L 3.5-5.3 Chloride (test code = 2075-0) 106 mmol/L 98-110 CO2 (test code = 2027-9) 28 mmol/L 20-32 Calcium (test code = 01066-5) 9.0 mg/dL 8.6-10.2 Protein (test code = 2885-2) 6.6 g/dL 6.1-8.1 Albumin, S (test code = 1751-7) 4.1 g/dL 3.6-5.1 Globulin, total (test code = 73053-6) 2.5 1.9- 3.7 g/dL (c alc) Albumin/globulin ratio (test code = 1759-0) 1.6 1.0- 2.5 ( calc) Total bilirubin (test code = 1975-2) 0.4 mg/dL 0.2-1.2 Alkaline phosphatase (test code = 6768-6) 73 U/L 31-125 AST (test code = 1920-8) 12 U/L 10-30 ALT (test code = 1742-6) 11 U/L 6-29 RAC (test code = RAC) Performing Organization Info rmation: Site ID: BENJI Name: [facility] Address: [address] [place] [phone] Director: Eddy CastorenaCreatine kinase, total (CPK)2019-12-24 13:21:00* Test Item Value Reference Range Interpretation Comments Creatine kinase (test code = 2157-6) 51 U/L 29-143 RAC (test code = RAC) Performing Organization Info rmation: Site ID: BENJI Name: [facility] Address: [address] [place] [phone] Director: Eddy CastorenaVitamin B12 qlqvx8683-84-90 13:21:00* Test Item Value Reference Range Interpretation Comments Vitamin B12 (test code = 2132-9) 303 pg/mL 200-1100 Please Note: Although the reference range for qguzegbQ62 is 200-1100 pg/mL, it has been reported that between5 and 10% of patients with values between 200 and 400pg/mL may experience neuropsychiatric and hematologicabnormalities due to occult B12 deficiency; less than 1%of patients with values above 400 pg/mL will have symptoms. RAC (test code = RAC) Performing Organization Info rmation: Site ID: BENJI Name: [facility] Address: [address] [place] [phone] Director: Eddy CastorenaT4, [id number] 13:21:00* Test Item Value Reference Range Interpretation Comments T4, free (test code = 3024-7) 1.2 ng/dL 0.8-1.8 RAC (test code = RAC) Performing Organization Info rmation: Site ID: BENJI Name: [facility] Address: [address] [place] [phone] Director: Eddy Araujo MethodistThyroid stimulating wjkgnhg4908-86-18 13:21:00* Test Item Value Reference Range Interpretation Comments TSH (test code = 3016-3) 2.74 mIU/L Reference Range > or = 20 Years 0.40-4.50 Ranges First trimester 0.26-2.66 Second trimester 0.55-2.73 Third trimester 0.43-2.91 RAC (test code = RAC) Performing Organization Info rmation: Site ID: BENJI Name: [facility] Address: [address] [place] [phone] Director: Eddy CastorenaT3, [id number] 13:21:00* Test Item Value Reference Range Interpretation Comments T3, free (test code = 3051-0) 3.6 pg/mL 2.3-4.2 RAC (test code = RAC) Performing Organization Info rmation: Site ID: BENJI Name: [facility] Address: [address] [place] [phone] Director: Eddy Araujo MethodistRheumatoid blrzhk9698-47-13 13:21:00* Test Item Value Reference Range Interpretation Comments Rheumatoid factor (test code = 16128-8) <14 <14 IU/mL RAC (test code = RAC) Performing Organization Info rmation: Site ID: BENJI Name: [facility] Address: [address] [place] [phone] Director: Eddy CastorenaCBC with platelet and xjgkzurvjcer9378-31-73 13:21:00* Test Item Value Reference Range Interpretation Comments WBC (test code = 6690-2) 8.7 3.8- 10.8 Thousand/uL RBC (test code = 789-8) 4.61 3.80- 5.10 Million/uL HGB (test code = 718-7) 13.4 g/dL 11.7-15.5 HCT (test code = 4544-3) 40.0 % 35-45 MCV (test code = 787-2) 86.8 fL 80-100 MCH (test code = 785-6) 29.1 pg 27-33 MCHC (test code = 786-4) 33.5 g/dL 32-36 RDW (test code = 788-0) 13.3 % 11-15 Platelet count (test code = 777-3) 370 140- 400 Thousand/u L MPV (test code = 776-5) 11.3 fL 7.5-12.5 Neutrophils, absolute (test code = 751-8) 5916 1,500 - 7,80 0 cells/uL Lymphocytes, absolute (test code = 731-0) 1871 850- 3,900 c ells/uL Monocytes, absolute (test code = 742-7) 757 200- 950 cells /uL Eosinophils, absolute (test code = 711-2) 96 15- 500 cell s/uL Basophils, absolute (test code = 704-7) 61 0- 200 cells/u L Neutrophils (test code = 770-8) 68 % Lymphocytes (test code = 736-9) 21.5 % Monocytes (test code = 5905-5) 8.7 % Eosinophils (test code = 713-8) 1.1 % Basophils + RC (test code = 706-2) 0.7 % RAC (test code = RAC) Performing Organization Info rmation: Site ID: RGA Name: [facility] Address: [address] [place] [phone] Director: Eddy Ballard Araujo MethodlaurenVitamin D 25 hydroxy [id number] 13:21:00* Test Item Value Reference Range Interpretation Comments Vitamin D, 25-hydroxy (test code = 1989-3) 12 ng/mL 30-100 L Vitamin D Status 25-OH Vitamin D: Deficiency: <20 ng/mLInsufficiency: 20 - 29 ng/mLOptimal: > or = 30 ng/mL For 25-OH Vitamin D testing on patients on D2-supplementation and patients for whom quantitation of D2 and D3 fractions is required, the LailaihuiureD(TM)25-OH VIT D, (D2,D3), LC/MS/MS is recommended: order code 96819 (patients >2yrs).See Note 1 Note 1 For additional information, please refer to http://education.JagTag/faq/KBQ233 (This link is being provided for informational/educational purposes only.) RAC (test code = RAC) Performing Organization Info rmation: Site ID: RGA Name: [facility] Address: [address] [place] [phone] Director: Eddy Ballard Lab Interpretation (test code = 73431-8) Abnormal [place] MethodistCyclic citrullinated peptide antibody, [id number] 13:21:00* Test Item Value Reference Range Interpretation Comments Cyclic citrullin peptide Ab (test code = 01718-6) <16 UNIT S Reference RangeNegative: <20Weak Positive: 20-39Moderate Positive: 40- 59Strong Positive: >59 RAC (test code = RAC) Performing Organization Info rmation: Site ID: IG Name: [facility] Address: [address] [place] [phone] Director: Dr. Eddy Ballard [place] MethodistANA IFA, W/REFL TO TITER/PATTERN/[id number] 13:21:00* Test Item Value Reference Range Interpretation Comments OSBALDO screen (test code = 35968-6) NEGATIVE NEGATIVE OSBALDO IFA is a first line screen for detecting thepresence of up to approximately 150 autoantibodies invarious autoimmune diseases. A negative OSBALDO IFA resultsuggests an OSBALDO- associated autoimmune disease is notpresent at this time, and does not reflex further. Ifthere is high clinical suspicion for Sjogren's syndrome,testing for anti-SS-A/Ro antibody should be considered.Anti-Allie-1 antibody should be cons idered for clinicallysuspected inflammatory myopathies. AC-0: Negative International Consensus on OSBALDO Patterns(https://doi.org/10.1515/cpxx-7252-2199) For additional information, please refer tohttp://e ducation.JagTag/faq/BEX028(This link is being provided for informational/educational purposes only.) RAC (test code = RAC) Performing Organization Info rmation: Site ID: IG Name: [facility] Address: [address] [place] [address] Director: Dr. Eddy Araujo MethodlaurenTHINPREP TIS PAP REFLEX HPV mRNA E6/[id number] 15:17:00* Test Item Value Reference Range Interpretation Comments Clinical information (test code = 96557-9) PT HAS NEXPLANON Date of last menstrual period (test code = 8665-2) NONE GIVEN Prev. pap: (test code = 01927-7) NONE GIVEN Prev. bx: (test code = 62547-3) NONE GIVEN Source (test code = 16444-5) Endocervix Statement of adequacy (test code = 44998-8) Satisfactory for evaluation.Endocervical/transformation zone componentpresent. Interpretation/result: (test code = 32772-6) Negative for intraepithelial lesion or malignancy. Infection (test code = 25503-7) Fungal organisms morphologically consistent withCandida spp. Comment (test code = 30004-5) This Pap test has been evaluated with computerassisted technology. Technology Adoption Manager (test code = 84331-1) CMP, CT(ASCP)CT screening location: [place] [id number] Comment (test code = 4137463) EXPLANATORY NOTE: The Pap is a screening test for cervical cancer. It is not a diagnostic test and is subject to false negative and false positive results. It is most reliable when a satisfactory sa mple, regularly obtained, is submitted with relevant clinical findings and history, and when the Pap result is evaluated along with historic and current clinical information. CHESTER (test code = RAC) Performing Organization Info rmation: Site ID: RGA Name: [facility] Address: [address] [place] [address] Director: Eddy CastorenaCHLAMYDIA/N. GONORRHOEAE RNA, [id number] 15:17:00* Test Item Value Reference Range Interpretation Comments Chlamydia trachomatis RNA, TMA (test code = 10791-1) NOT DETECTE D NOT DETECTED Neisseria gonorrhoeae RNA, TMA (test code = 31239-1) NOT DETECTE D NOT DETECTED (Always message) (test code = 2647) The analytical performance characteristics of thisassay, when used to test SurePath(TM) specimens have beendetermined by [facility]. The modifications havenot been cleared or approved by the FDA. This assay hasbeen validated pursuant to the CLIA regulations and isused for clinical purposes. For additional information, please refer tohttps://E-Diversify Yourself.AFreeze/faq/ZBH052(This link is being provided for information/educational purposes only.) CHESTER (test code = RAC) Performing Organization Info rmation: Site ID: IG Name: [facility] Address: [address] [place] [phone] Director: Dr. Eddy Araujo MethodistTrichomonas vaginalis RNA, Qualitative, TMA, PAP [id number] 15:17:00* Test Item Value Reference Range Interpretation Comments Trichomonas vaginalis, ql tma, pap vial (test code = 40160-4 ) NOT DETECTED NOT DETECTED The analytical performance c haracteristics of thisassay have been determined by [facility]. Themodifications have not been cleared or approved bythe FDA. This assay has been validated pursuant to theCLIA regulations and is used for clinical purposes. For additional information, please refer tohttp://E-Diversify Yourself.AFreeze/faq/Trichomonastma(This link is being provided for information/educational purposes only.) CHESTER (test code = CHESTER) Performing Organization Info rmation: Site ID: IG Name: [facility] Address: [address] [place] [phone] Director: Dr. Eddy EspinalistUrine heratei8519-85-76 13:09:36* Test Item Value Reference Range Interpretation Comments Urine culture isolate (test code = 97376-1) Streptococcus group B10-3 cfu/ml A Specimen InformationSpecimen Source: Uri neSpecimen Site: Random void Lab Interpretation (test code = 32970-4) Abnormal [place] MethodistGram iqzuu4690-44-25 13:09:36Gram stain resultMany WBC'sMany Gram negative rods Comment: Specimen InformationSpecimen Source: UrineSpecimen Site: Random void [facility] MethodistUrinalysis screen and microscopy, with reflex to uhpglel8724-90-23 09:31:53* Test Item Value Reference Range Interpretation Comments Specimen site (test code = 4559186) Random void Color, UA (test code = 5778-6) Mindy Appearance, UA (test code = 5767-9) Cloudy Specific gravity, UA (test code = 5811-5) 1.038 1.001-1.035 H pH, UA (test code = 5803-2) 5.0 5.0-8.5 Protein, UA (test code = 21104-7) 2+ Negative A Glucose, UA (test code = 56444-7) Negative Negative Ketones, UA (test code = 2514-8) 1+ Negative A Bilirubin, UA (test code = 5770-3) Negative Negative Blood, UA (test code = 5794-3) Moderate Negative A Nitrite, UA (test code = 5802-4) Positive Negative A Urobilinogen, UA (test code = 73838-1) 4.0 <2.0 A Leukocyte esterase, UA (test code = 5799-2) Small Negative A Epithelial cells, UA (test code = 5787-7) 18 /HPF WBC, UA (test code = 5821-4) >180 0- 4 /HPF H RBC, UA (test code = 34639-6) 167 0- 5 /HPF H Bacteria, UA (test code = 54681-0) Moderate None seen A WBC clumps, UA (test code = 74764-8) Moderate A Yeast, UA (test code = 99833-1) None seen Yeast with pseudohyphae, UA (test code = 31423-0) None seen Lab Interpretation (test code = 82904-1) Abnormal Van CastorenahCG qualitative, urine ovsgxw9457-76-07 08:50:16* Test Item Value Reference Range Interpretation Comments hCG qualitative, urine (test code = 2106-3) Negative Sensitivity of HCG test: 25 mIU/mL Van CastorenaCHLAMYDIA GC DNA BY [id number] 22:07:00* Test Item Value Reference Range Interpretation Comments C. TRACHOMATIS DNA BY PCR (test code = CHLAMTDNA) Negative Nega tive N. GONORRHOEAE DNA BY PCR (test code = NGONORDNA) Negative Nega tive Performed At: [facility] [facility], [place] [id number] vasu Medina MD Ph:[phone] performed at: [facility] [address] [place] [address] UR HCG [id number] 22:29:00* Test Item Value Reference Range Interpretation Comments UR HCG QUAL (test code = HCGQLU) NEGATIVE This HCGQL test is NOT applicable for MALE patients.Check with nurse about probable order error.If Tumor Marker Test needed, nurse should order test "HCGTU"(Test #550.49677) BASIC METABOLIC [id number] 21:54:00* Test Item Value Reference Range Interpretation Comments SODIUM (test code = NA) 140 mmol/L 136-145 N POTASSIUM (test code = K) 4.3 mmol/L 3.5-5.1 N CHLORIDE (test code = CL) 104 mmol/L 101-109 N CARBON DIOXIDE (test code = CO2) 25.3 mmol/L 21-32 N ANION GAP (test code = GAP) 15 mmol/L 10-20 N GLUCOSE (test code = GLU) 108 mg/dL 74-106 H BLOOD UREA NITROGEN (test code = BUN) 12 mg/dL 3-21 N GLOMERULAR FILTRATION RATE (test code = GFR) > 60 mL/min >=60 Estimated GFR by using Modified MDRD formula.Chronic kidney disease is defined as either kidney damageor GFR <60 mL/min/1.73 m2 for >3 months. CREATININE (test code = CREAT) 0.68 mg/dL 0.55-1.3 N BUN/CREATININE RATIO (test code = BUN/CREA) 17.6 10-20 N CALCIUM (test code = CA) 9.0 mg/dL 8.4-10.2 N URINALYSIS [id number] 20:52:00* Test Item Value Reference Range Interpretation Comments UA COLOR (test code = COLU) YELLOW YELLOW UA APPEARANCE (test code = APPU) Cloudy CLEAR A UA GLUCOSE DIPSTICK (test code = DGLUU) norm mg/dL NEGATIVE UA BILIRUBIN DIPSTICK (test code = BILU) NEGATIVE mg/dL NEGATIVE UA KETONE DIPSTICK (test code = KETU) 5 (Trace) mg/dL NEGATIVE A UA SPECIFIC GRAVITY (test code = SGU) 1.015 1.001-1.035 UA BLOOD DIPSTICK (test code = SURENDRA) 150 (3+) Maxx/uL NEGATIVE A UA PH DIPSTICK (test code = FORTINO) 5.0 5.0-8.0 UA PROTEIN DIPSTICK (test code = PROU) 30 (1+) mg/dL Neg-15 A UA UROBILINIOGEN DIPSTICK (test code = URO) norm mg/dL 0.0-0.2 UA NITRITE DIPSTICK (test code = ENRICO) POSITIVE NEGATIVE UA LEUKOCYTE ESTERASE DIPSTICK (test code = LEUU) 500 Otis/uL (3+) u L NEGATIVE A UA WBC (test code = WBCU) >50 per HPF 0-5 A UA RBC (test code = RBCU) 6-10 per HPF 0-5 UA EPITHELIAL CELLS (test code = EPIU) Moderate (5-10/hpf) per HPF Few UA BACTERIA (test code = BACU) MANY per HPF NONE A UA MUCUS (test code = MUCU) FEW per LPF NONE-FEW Urine Source? Clean CatchURINALYSIS [id number] 20:43:00* Test Item Value Reference Range Interpretation Comments UA COLOR (test code = COLU) YELLOW YELLOW UA APPEARANCE (test code = APPU) Cloudy CLEAR A UA GLUCOSE DIPSTICK (test code = DGLUU) norm mg/dL NEGATIVE UA BILIRUBIN DIPSTICK (test code = BILU) NEGATIVE mg/dL NEGATIVE UA KETONE DIPSTICK (test code = KETU) 5 (Trace) mg/dL NEGATIVE A UA SPECIFIC GRAVITY (test code = SGU) 1.015 1.001-1.035 UA BLOOD DIPSTICK (test code = SURENDRA) 150 (3+) Maxx/uL NEGATIVE A UA PH DIPSTICK (test code = FORTINO) 5.0 5.0-8.0 UA PROTEIN DIPSTICK (test code = PROU) 30 (1+) mg/dL Neg-15 A UA UROBILINIOGEN DIPSTICK (test code = URO) norm mg/dL 0.0-0.2 UA NITRITE DIPSTICK (test code = ENRICO) POSITIVE NEGATIVE UA LEUKOCYTE ESTERASE DIPSTICK (test code = LEUU) 500 Otis/uL (3+) u L NEGATIVE A UA WBC (test code = WBCU) per HPF 0-5 UA RBC (test code = RBCU) per HPF 0-5 UA EPITHELIAL CELLS (test code = EPIU) per HPF Few UA BACTERIA (test code = BACU) per HPF NONE Urine Source? Clean Catch[O] Urine Test (in office)2019-01-12 14:06:00 * Test Item Value Reference Range Interpretation Comments Test, Urine; Normal (test code = 2106-3) negative N [facility]- US ABDOMEN [id number] 22:45:00 Name: KANDACE ASH [facility] : 1995 Age/S: 23 / F [address] [facility] Unit #: [id number] Loc: [place] [address] Phys: Analy Morales MD Acct: [id number] Di s Date: Status: REG ER PHONE #: [phone] Exam Date: 12/10/20182243 FAX #: Reason: DRAINING LOWER ABDOMINAL INCISION RULE OUT ABSC EXAMS: CPT CODE: [id number] [place] [id number] REASON FOR EXAM: DRAINING LOWER ABDOMINAL INCISION RULE OUT ABSCESS EXAM ORDER DATE : 12/10/2018 8:56 PM Attending Lucinda: Marquita Morales MD PROCEDURE: - US ABDOMEN LTD FINDINGS: Limited focal ultras ound performed for assessment of abscess in the anterior abdominal wall IMPRESSION: Mild diffuse soft tissue swelling suggestive of cellul itis with a 2.4 cm complex fluid collection suggestive of a small absces s at 7899 Reported and signed by: Jorge Fajardo M.D. CC: Marquita Morales MD Technologist: Joan Bach RDMS Trnscb Date/Time: 12/10/2018 ( 2618) tNINA Orig Print D/T: S: 12/10/2018 (7233) Probe: PAGE 1 Signed Report BASIC METABOLIC [id number] 21:27:00* Test Item Value Reference Range Interpretation Comments SODIUM (test code = NA) 139 mmol/L 135-148 N POTASSIUM (test code = K) 4.0 mmol/L 3.5-5.1 N CHLORIDE (test code = CL) 104 mmol/L 101-109 N CARBON DIOXIDE (test code = CO2) 22.7 mmol/L 21-32 N ANION GAP (test code = GAP) 16 mmol/L 10-20 N GLUCOSE (test code = GLU) 91 mg/dL 74-106 N BLOOD UREA NITROGEN (test code = BUN) 14 mg/dL 3-21 N GLOMERULAR FILTRATION RATE (test code = GFR) > 60 mL/min >=60 Estimated GFR by using Modified MDRD formula.Chronic kidney disease is defined as either kidney damageor GFR <60 mL/min/1.73 m2 for >3 months. CREATININE (test code = CREAT) 0.59 mg/dL 0.55-1.3 N BUN/CREATININE RATIO (test code = BUN/CREA) 23.7 10-20 H CALCIUM (test code = CA) 8.9 mg/dL 8.4-10.2 N CBC W/AUTO [id number] 21:15:00* Test Item Value Reference Range Interpretation Comments WHITE BLOOD CELL (test code = WBC) 12.3 K/mm3 4.5-12.5 N RED BLOOD CELL (test code = RBC) 4.38 mill/mm3 3.7-5.2 N HEMOGLOBIN (test code = HGB) 12.6 gram/dL 11.5-15.5 N HEMATOCRIT (test code = HCT) 37.2 % 36.0-46.0 N MEAN CELL VOLUME (test code = MCV) 84.9 fL 80-98 N MEAN CELL HGB (test code = MCH) 28.8 picogram 27.0-33.0 N MEAN CELL HGB CONCETRATION (test code = MCHC) 33.9 gram/dL 33.0-36. 0 N RED CELL DISTRIBUTION WIDTH (test code = RDW) 14.3 % 11.6-16. 2 N RED CELL DISTRIBUTION WIDTH SD (test code = RDW-SD) 43.3 fL 39 .1-52.0 N PLATELET COUNT (test code = PLT) 431 K/mm3 150-450 N MEAN PLATELET VOLUME (test code = MPV) 10.2 fL 6.7-11.0 N NEUTROPHIL % (test code = NT%) 73.7 % 39.0-69.0 H LYMPHOCYTE % (test code = LY%) 14.8 % 25.0-55.0 L MONOCYTE % (test code = MO%) 9.7 % 0.0-10.0 N EOSINOPHIL % (test code = EO%) 1.5 % 0.0-5.0 N BASOPHIL % (test code = BA%) 0.3 % 0.0-1.0 N NEUTROPHIL # (test code = NT#) 9.04 K/mm3 1.8-7.7 H LYMPHOCYTE # (test code = LY#) 1.82 K/mm3 1.0-5.0 N MONOCYTE # (test code = MO#) 1.19 K/mm3 0-0.8 H EOSINOPHIL # (test code = EO#) 0.18 K/mm3 0.0-0.5 N BASOPHIL # (test code = BA#) 0.04 K/mm3 0.0-0.2 N MANUAL DIFF REQUIRED (test code = MDIFF) NO [QLH] CBC (INCLUDES DIFF/PLT)2018-11-30 13:51:01* Test Item Value Reference Range Interpretation Comments WBC; Above High Threshold (test code = 6690-2) 10.6 {K/CMM} 3.7-10. 4 RBC (test code = 789-8) 4.29 {M/CMM} 4.20-5.40 Hgb (test code = 718-7) 12.3 g/dl 12.0-16.0 Hct (test code = 23769-4) 36.5 % 36.0-48.0 MCV (test code = 787-2) 84.9 fL 80.0-98.0 MCH (test code = 785-6) 28.8 pg 27.0-31.0 MCHC (test code = 786-4) 33.9 g/dl 32.0-36.0 RDW; Above High Threshold (test code = 788-0) 15.1 % 11.5-14. 5 Platelet (test code = 42241-1) 249 {K/CMM} 133-450 Mean Platelet Volume; Above High Threshold (test code = 3262 3-1) 10.6 fL 7.4-10.4 [facility]] [id number] 13:51:01* Test Item Value Reference Range Interpretation Comments Segmented Neutrophils; Above High Threshold (test code = 265 05-8) 77.5 % 45.0-75.0 Monocytes (test code = 88894-4) 9.4 % 2.0-12.0 Lymphocytes; Below Low Threshold (test code = 92888-8) 12.2 % 20.0-40.0 Eosinophils (test code = 58270-9) 0.4 % 0.0-4.0 Basophils (test code = 706-2) 0.5 % 0.0-1.0 Segs-Bands #; Above High Threshold (test code = 29881-4) 8.2 {K/CMM } 1.5-8.1 Lymphocytes # (test code = 85738-8) 1.3 {K/CMM} 1.0-5.5 Monocytes #; Above High Threshold (test code = 86639-7) 1.0 {K/CMM} 0.0-0.8 Basophils # (test code = 10498-0) 0.1 {K/CMM} 0.0-0.2 [facility]] [id number] 13:51:01* Test Item Value Reference Range Interpretation Comments RPR (test code = 50563-5) Non-Reactive Non-Reactive [facility][] HIV AB, HIV 1/2, EIA, WITH [id number] 13:51:01* Test Item Value Reference Range Interpretation Comments HIV Ag/Ab 4th Gen (test code = 57431-7) Negative Negative HIV test results should be considered positive only when both the screening andthe confirmatory tests are positive. A negative confirmatory test in patientswith a positive screening test does not exclude HIV infection. If clincallywarranted, an HIV RNA quantitative test should be ordered. [facility][] STREPTOCOCCUS, GROUP B CULTURE (Genital Strep Screen)2018-11-30 13:51:01* Test Item Value Reference Range Interpretation Comments FINAL REPORT (test code = FINAL REPORT) No Beta-Hemolytic St reptococci Isolated [facility]iciansCHE[facility] [id number] 03:31:95782Oxbrllum Vasile CHEM SPKVG0586-10-72 03:31:002.8[facility] ZEMQE6316-82-28 03:31:0017 [facility] MULQG6750-49-94 03:31:008.8[facility] PANEL 2018-10-23 03:31:006.8[facility] MYJJD8196-66-86 03:31:000.2[facility] EOKMS8011-88-93 03:31:0094[facility] NSPWB4565-50-27 03:31:0011[facility] JPUSC7470-11-85 03:31:000.45[facility] BZLCN5517-34-11 03:31:16118Twoddqwh HermannCHEM KZVDF2831-07-21 03:31:0076 [facility] HOVFM1183-50-97 03:31:009[facility]CHE[facility] PANEL 2018-10-23 03:31:09256Koipnkgp HermannCHEM [id number] 03:31:0020[facility] FUFVM6644-00-04 03:31:003.7[facility] EDBBR7308-15-04 03:31:004.0[facility] TPFPV8999-15-57 03:31:0015.7[facility] [id number] 03:31:00* Test Item Value Reference Range Interpretation Comments B/C Ratio (test code = B/C Ratio) 20 1 6-25 [facility] [id number] 03:31:00* Test Item Value Reference Range Interpretation Comments A/G Ratio (test code = A/G Ratio) 0.7 1 0.7-1.6 [facility] [id number] 03:31:0062[facility]CHE[facility] PANEL 2018-10-23 03:31:93435Kndhsklk CscfloqAMOQGHLYTG2163-82-30 03:31:000.1[facility] VqjvrwaMNHLSBRATD2440-48-33 03:31:000.6[facility] LduoiaaIWZPFHHEYK9259-54-30 03:31:000.5[facility] UmocdasTOCDDTJULB6265-23-35 03:31:000.1[facility] MGNUMZNKNU8191-45-91 03:31:001.8[facility] HxlxesuEBOOLWICME2621-77-68 03:31:009.7 [facility] VlwzlmmFAEEIHGVEN9567-31-54 03:31:001.3[facility]annHEMATOLOGY 2018-10-23 03:31:0013.7[facility] WmmmmxlNNWJRFNCQS1853-99-53 03:31:0075.0[facility] UslwdukLEHTGDSHMU6444-43-63 03:31:0010.2[facility] BplmjbjILPSIBUQWL9270-96-88 03:31:0010.1[facility] FviwwpiSBQEKKEQXU7684-84-68 03:31:0033.3[facility] NQOOAIQPOE7548-40-41 03:31:0014.1[facility] UrtbaqqUFZVUKOJWN4898-06-49 03:31:00* Test Item Value Reference Range Interpretation Comments MCH (test code = MCH) 28.2 pg 27.0-31.0 [facility] CgzppbnRIIZZPTNQX6984-92-78 03:31:49710Qcwkmama HermannHEMATOLOGY 2018-10-23 03:31:004.37[facility] QjphtvpITQGWMOOHX1536-72-30 03:31:0013.0[facility] LvlokueSEMPRNJFXC2684-35-59 03:31:0037.1[facility] NommiakQQGHVJFLOE3774-37-07 03:31:0012.3[facility] QjikfaqYHBSPBBUDH5852-25-38 03:31:0084.7[facility] [place] [QL] CBC (INCLUDES DIFF/PLT)2018-09-10 12:36:01* Test Item Value Reference Range Interpretation Comments WBC; Above High Threshold (test code = 6690-2) 11.1 {K/CMM} 3.7-10. 4 RBC; Below Low Threshold (test code = 789-8) 4.13 {M/CMM} 4.20-5.40 Hgb (test code = 718-7) 12.3 g/dl 12.0-16.0 Hct (test code = 72077-4) 36.0 % 36.0-48.0 MCV (test code = 787-2) 87.3 fL 80.0-98.0 MCH (test code = 785-6) 29.8 pg 27.0-31.0 MCHC (test code = 786-4) 34.1 g/dl 32.0-36.0 RDW (test code = 788-0) 13.6 % 11.5-14.5 Platelet (test code = 03245-6) 253 {K/CMM} 133-450 Mean Platelet Volume (test code = 68335-5) 9.6 fL 7.4-10.4 [facility]] Pnpkijazudrm4290-05-87 12:36:01* Test Item Value Reference Range Interpretation Comments Segmented Neutrophils; Above High Threshold (test code = 265 05-8) 79.9 % 45.0-75.0 Monocytes (test code = 43506-3) 8.6 % 2.0-12.0 Lymphocytes; Below Low Threshold (test code = 81519-7) 10.8 % 20.0-40.0 Eosinophils (test code = 50397-8) 0.4 % 0.0-4.0 Basophils (test code = 706-2) 0.3 % 0.0-1.0 Segs-Bands #; Above High Threshold (test code = 37693-2) 8.9 {K/CMM } 1.5-8.1 Lymphocytes # (test code = 64341-4) 1.2 {K/CMM} 1.0-5.5 Monocytes #; Above High Threshold (test code = 75390-1) 1.0 {K/CMM} 0.0-0.8 Eosinophils # (test code = 63207-0) 0.1 {K/CMM} 0.0-0.5 [facility][] GLUCOSE, GESTATIONAL SCREEN (50G)-130 CUTOFF 2018-09-10 12:36:01* Test Item Value Reference Range Interpretation Comments Glucose Challenge (test code = 1504-0) 69.0 mg/dl <=140.0 [facility]. [facility] - Affirm VPIII (BV Panel)2018-07-15 00:00:00* Test Item Value Reference Range Interpretation Comments Affirm VPIII (BV Panel) REPORT (test code = Affirm VPI II (BV Panel) REPORT) See Comment [facility][H] Quad [id number] 11:55:01* Test Item Value Reference Range Interpretation Comments Results (Maternal Screen) (test code = Results (Maternal Screen)) R eport Test Results (Maternal Screen) (test code = Test Resul ts (Maternal Screen)) *Screen Negative* Gest Age on Collection Date (test code = Gest Age on C ollection Date) 17.1 {WEEKS} Gest Age Base On (test code = Gest Age Base On) As provided Maternal Age at JABIER (test code = Maternal Age at JABIER) 22.6 Maternal Race (test code = Maternal Race) Comment Not provided. Maternal Weight (test code = Maternal Weight) 270 {lb} Insulin-Dependent Diabetic (test code = Insulin-Dependent Diabetic) No Multiple Gest (test code = Multiple Gest) No Alpha Fetoprotein Maternal (test code = Alpha Fetoprotein Ma ternal) 21.8 ng/ml Multiple of Median AFP (test code = 89393-8) 0.83 hCG Maternal (test code = hCG Maternal) 95825 {miU/ml} MoM hCG (test code = MoM hCG) 0.80 PT'S uE3 (test code = PT'S uE3) 0.77 ng/ml Multiple of Median uE3 (test code = Multiple of Median uE3) 0.84 Inhibin A, Dimeric (test code = Inhibin A, Dimeric) 68.95 pg/ml MoM Inhibin A, Dimeric (test code = MoM Inhibin A, Dimeric) 0.57 OSBR Risk (test code = OSBR Risk) 15084 Down Syndrome Risk (2nd trimester) (test code = Down Syndrome Risk (2nd trimester)) 21108 Age Risk Down Syndrome (test code = Age Risk Down Syndrome) 1114 Risk for Trisomy 18 (test code = Risk for Trisomy 18) Not increased Age Risk Trisomy 18 (test code = Age Risk Trisomy 18) 1:4339 Maternal Screen Interp (test code = Maternal Screen Interp) Comment Interpretation: Screen NegativeThis result is screen negative for OSB, DownSyndrome and Trisomy 18. The AFP MoM and patient specificrisks calculated are based on the gestational age and theclinical information provided. This test can identify up to80% of open neural tube defects. Closed neural tubedefects and some open defects may not be detected by thistest. The combination of maternal age, AFP, hCG, uE3, andDIA identifies 75-80% of Down Syndrome. Thecombination of maternal age, AFP, hCG and uE3 inpshmczrw44% of Trisomy 18 pregnancies. The [place] [employer] ofOb[employer]etricians and G ynecologists recommends amniocentesis beoffered to women age 35 and older.Recalculations are not recommended when gestational datingby LMP and ultrasound are within 10 days. Comment (Maternal Scrn) (test code = Comment (Maternal Scrn)) Thierno Zuniga, Ph.D., [facility] Technical DirectorReferences: Available Upon Request.Multiples Of Median Cutoffs Abbreviation Definitions For AFP Elevations IDD- Insulin Dep DiabetesSingleton 2.5 Black 2.8 OSBR- Open Spina BifidaIDD 2.0 Twins 4.5 RiskDSR Cutoff 1:270 DSR- Down Syndrome RiskT18 Cutoff 1:100 T18- Trisomy 18Down Syndrome and Trisomy 18 screening are consideredInvestigationalFor further inquiries contact fotobabble Servicesat [phone].Performed At: [email or web address] [email or web address] [place], [place] [id number] Dawson MD Ph:[phone] Insulin Dependent? (test code = Insulin Dependent?) N Gest Ager Weeks? (test code = Gest Ager Weeks?) 17 Gest Age Days (test code = Gest Age Days) 1 Gest Age Date of Calculation (YYYYMMDD) (test code = Gest Age Date of Calculation (YYYYMMDD)) Gest Age Method of Calculation (test code = Gest Age Method of Calculation) LMP Date of LMP (test code = Date of LMP) Est Due Date (test code = Est Due Date) [id number] Number of Fetuses (test code = Number of Fetuses) 1 Other Indications? (test code = Other Indications?) N [facility]] URIC [id number] 17:37:01* Test Item Value Reference Range Interpretation Comments Uric Acid (test code = 3084-1) 4.9 mg/dl 2.5-7.0 [facility]] HEPATIC FUNCTION [id number] 17:37:01* Test Item Value Reference Range Interpretation Comments Total Protein (test code = 2885-2) 6.9 g/dl 6.4-8.4 Albumin Lvl (test code = 1751-7) 3.7 g/dl 3.5-5.0 Bili Total (test code = 1974-) 0.2 mg/dl 0.2-1.3 Bilirubin Direct (test code = 1967-) <0.1 0.0-0.3 Bilirubin Indirect (test code = 1970-) Unable to Calculate 0.0-1.0 Alk Phos (test code = 1783-0) 82 u/l 39-136 AST (test code = 52894-3) 15 u/l 0-37 ALT (test code = 1743-4) 23 u/l 0-65 Globulin (test code = 95794-7) 3.2 g/dl 2.7-4.2 A/G Ratio (test code = 1759-0) 1.2 0.7-1.6 [facility]] CBC (INCLUDES DIFF/PLT)2018-05-18 17:37:01* Test Item Value Reference Range Interpretation Comments WBC; Above High Threshold (test code = 6690-2) 12.8 {K/CMM} 3.7-10. 4 RBC (test code = 789-8) 4.26 {M/CMM} 4.20-5.40 Hgb (test code = 718-7) 13.1 g/dl 12.0-16.0 Hct (test code = 71610-2) 38.0 % 36.0-48.0 MCV (test code = 787-2) 89.1 fL 80.0-98.0 MCH (test code = 785-6) 30.7 pg 27.0-31.0 MCHC (test code = 786-4) 34.4 g/dl 32.0-36.0 RDW (test code = 788-0) 13.4 % 11.5-14.5 Platelet (test code = 18497-8) 307 {K/CMM} 133-450 Mean Platelet Volume (test code = 04263-1) 9.2 fL 7.4-10.4 [facility]] Fdcupqlmmtnp0504-37-09 17:37:01* Test Item Value Reference Range Interpretation Comments Segmented Neutrophils (test code = 89412-6) 71.9 % 45.0-75.0 Monocytes (test code = 48143-4) 10.7 % 2.0-12.0 Lymphocytes; Below Low Threshold (test code = 43767-6) 14.6 % 20.0-40.0 Eosinophils (test code = 22117-9) 2.3 % 0.0-4.0 Basophils (test code = 706-2) 0.5 % 0.0-1.0 Segs-Bands #; Above High Threshold (test code = 49626-7) 9.2 {K/CMM } 1.5-8.1 Lymphocytes # (test code = 65680-3) 1.9 {K/CMM} 1.0-5.5 Monocytes #; Above High Threshold (test code = 91058-6) 1.4 {K/CMM} 0.0-0.8 Eosinophils # (test code = 85727-0) 0.3 {K/CMM} 0.0-0.5 Basophils # (test code = 97830-5) 0.1 {K/CMM} 0.0-0.2 [facility][] PROTEIN, TOTAL W/CREAT, RANDOM URINE 2018-05-18 17:37:01* Test Item Value Reference Range Interpretation Comments U Creatinine (test code = 2161-8) 67.40 mg/dl No established reference ranges. Urine Protein Level (test code = 2888-6) 5.5 mg/dl No established reference ranges. U Prot/Creat (test code = 2890-2) 0.08 [facility]] LACTATE DEHYDROGENASE ISOENZYME PANEL 2018-05-18 17:37:01* Test Item Value Reference Range Interpretation Comments Lactate Dehydrogenase Total (test code = Lactate Dehyd rogenase Total) 162 {iu/l} 119-226 Lactate Dehydrogenase 1; Below Low Threshold (test code = 20804-0) 16 % 17-32 Lactate Dehydrogenase 2 (test code = Lactate Dehydrogenase 2) 30 % 25-40 Lactate Dehydrogenase 3 (test code = Lactate Dehydrogenase 3) 27 % 17-27 Lactate Dehydrogenase 4 (test code = Lactate Dehydrogenase 4) 13 % 5-13 Lactate Dehydrogenase 5 (test code = Lactate Dehydrogenase 5) 14 % 4-20 Performed At: [facility] [address] [id number] Guardado MD Ph:[phone] At: [facility] [address] [id number] Kyle L MD Ph:[phone] [facility]] CBC (INCLUDES DIFF/PLT)2018-05-04 11:41:01* Test Item Value Reference Range Interpretation Comments WBC; Above High Threshold (test code = 6690-2) 11.0 {K/CMM} 3.7-10. 4 RBC (test code = 789-8) 4.28 {M/CMM} 4.20-5.40 Hgb (test code = 718-7) 13.5 g/dl 12.0-16.0 Hct (test code = 28818-2) 38.4 % 36.0-48.0 MCV (test code = 787-2) 89.8 fL 80.0-98.0 MCH; Above High Threshold (test code = 785-6) 31.5 pg 27.0-31. 0 MCHC (test code = 786-4) 35.1 g/dl 32.0-36.0 RDW (test code = 788-0) 14.0 % 11.5-14.5 Platelet (test code = 48962-8) 289 {K/CMM} 133-450 Mean Platelet Volume (test code = 06784-7) 9.1 fL 7.4-10.4 [facility]] Fyzaamnnhgaf7491-92-29 11:41:01* Test Item Value Reference Range Interpretation Comments Segmented Neutrophils (test code = 14502-4) 73.4 % 45.0-75.0 Monocytes (test code = 38764-8) 8.9 % 2.0-12.0 Lymphocytes; Below Low Threshold (test code = 02433-6) 16.4 % 20.0-40.0 Eosinophils (test code = 12582-1) 0.7 % 0.0-4.0 Basophils (test code = 706-2) 0.6 % 0.0-1.0 Segs-Bands # (test code = 02760-8) 8.1 {K/CMM} 1.5-8.1 Lymphocytes # (test code = 57430-8) 1.8 {K/CMM} 1.0-5.5 Monocytes #; Above High Threshold (test code = 94165-9) 1.0 {K/CMM} 0.0-0.8 Eosinophils # (test code = 55937-3) 0.1 {K/CMM} 0.0-0.5 Basophils # (test code = 44990-9) 0.1 {K/CMM} 0.0-0.2 [facility]] ABO GROUP AND RH [id number] 11:41:01* Test Item Value Reference Range Interpretation Comments OP ABORh Interp (test code = OP ABORh Interp) O POS [facility] ANTIBODY SCREEN, RBC W/REFL ID, TITER AND AG 2018-05-04 11:41:01* Test Item Value Reference Range Interpretation Comments OP ABSC Gel Interp (test code = OP ABSC Gel Interp) Negative [facility]
--- OUTSIDE RECORDS SUMMARY | 2020-05-25 01:39 | XMS REPORT | Clinical Summary ---
Author Author [facility] Organization [facility] Address Unknown Phone Unavailable Care Team Providers Care Design Supervisor Name Role Phone Fahad Krueger MD PCP Allergies No Known Active Allergies Medications End Date Status Medication Sig Dispensed Refills Start Date Active cholecalciferol, vitamin TAKE 1 8 capsule 0 0 D3, 1,250 mcg (50,000 CAPSULE BY 0 unit) capsule MOUTH ONCE A WEEK 06/05/2019 sulfamethoxazole-trimetho Take 1 tablet 14 tablet 0 prim (BACTRIM DS) 800-160 by mouth 2 9 mg per tablet (two) times a day for 7 days. smx-tmp DS (BACTRIM) 800-160 mg tabs (1tab q12 D10) 06/08/2019 valACYclovir (VALTREX) Take 1 tablet 20 tablet 0 1 1000 MG tablet (1,000 mg 9 total) by mouth 2 (two) times a day for 10 days. 06/28/2019 acetaminophen (TYLENOL Take 2 30 tablet 0 EXTRA STRENGTH) 500 MG tablets 9 tablet (1,000 mg total) by mouth every 6 (six) hours as needed for moderate pain for up to 30 days. 06/28/2019 ibuprofen (ADVIL) 600 MG Take 1 tablet 30 tablet 0 tablet (600 mg 9 total) by mouth every 8 (eight) hours as needed for moderate pain for up to 30 days. 06/28/2019 lidocaine 3 % cream Apply 1 85 g 0 application 9 topically daily for 30 days. 03/13/2020 Discontinued cholecalciferol, vitamin Take 1 8 capsule 0 0 D3, 1,250 mcg (50,000 capsule 0 unit) capsule (50,000 Units total) by mouth once a week for 60 days. 05/02/2020 Discontinued cholecalciferol, vitamin TAKE 1 8 capsule 0 0 D3, 1,250 mcg (50,000 CAPSULE 0 unit) capsule (50,000 UNITS TOTAL) BY MOUTH ONCE A WEEK FOR 60 DAYS. Active Problems Problem Noted Date Fatigue 12/26/2016 Encounters Care Team Description Date Type Specialty Americo Mckeon MD 05/18/2020 Telephone Obstetrics and Gyne cology Melania Arreguin MA Encounter to determine viability o f , single or unspecified fetus (Primary Dx) 05/08/2020 Orders Only Obstetrics and Gyne cology Fahad Krueger MD 05/02/2020 Refill Internal Medicine 03/20/2020 Travel 03/13/2020 Fahad Ospina MD 03/13/2020 Refill Internal Medicine 02/25/2020 Fahad Ospina MD COVID-19 virus infection (Primary Dx); Chills; Anosmia 02/24/2020 Telemedicine Internal Medicine Fahad Krueger MD 02/23/2020 Telephone Access 02/23/2020 Fahad Ospina MD 01/24/2020 Orders Only Internal Medicine Fahad Krueger MD 01/20/2020 Orders Only Internal Medicine Fahad Krueger MD Other fatigue (Primary Dx); Hypothyroidism, unspecified type; Myopathy; Weight gain 12/22/2019 Telemedicine Internal Medicine Hyun Bishop RN 12/14/2019 Nurse Triage Access 12/14/2019 Travel Americo Mckeon MD Breast mass (Primary Dx) 10/28/2019 Office Visit Obstetrics and Gyne cology 10/27/2019 Travel Lorenzo Estrella NP No Show 10/22/2019 Office Visit Family Medicine Americo Mckeon MD Nexplanon removal (Primary Dx) 09/22/2019 Procedure visit Obstetrics and Gyne cology Americo Mckeon MD Well woman exam (Primary Dx) 09/15/2019 Office Visit Obstetrics and Gyne cology Tracee Hutchinson MD 08/12/2019 Telephone Obstetrics and Gyne cology Yves Laura MD Acute cystitis with hematuria (Primary D x); Herpes simplex 05/29/2019 Emergency Emergency Medicine 05/29/2019 Travel after 05/25/2019 Surgical History Surgery Date Site/Laterality Comments SECTION Medical History Medical History Date Comments Hypertension Thyroid disease Family History Medical History Relation Name Comments No Known Problems Brother No Known Problems Brother Diabetes Father Hypertension Father Hypertension Mother Thyroid disease Mother No Known Problems Sister No Known Problems Sister No Known Problems Sister Relation Name Status Comments Brother Alive Brother Father Alive Mother Alive Sister Alive Sister Alive Sister Alive Social History Date Tobacco Use Types Packs/Day Years Used Never Smoker Smokeless Tobacco: Never Used Drinks/Week oz/Week Comments Alcohol Use social Yes Sex Assigned at Date Recorded Not on file Obstetrics History Term Pre Abrt (TAB) (SAB) (Ect) Mult Lvng Comments Grav Para 1 1 1 Date GA Total Labor Labor/2nd/3rd Weight Sex Delivery Anes PTL Rhianna A1 A5 Name Clin Outcome Para Last Filed Vital Signs Reading Time Taken Comments Vital Sign 113/76 10/28/2019 2:44 PM CDT Blood Pressure 92 10/28/2019 2:44 PM CDT Pulse 36.8 C (98.3 F) 05/29/2019 9:23 AM CDT Temperature 18 05/29/2019 9:23 AM CDT Respiratory Rate 98% 05/29/2019 9:23 AM CDT Oxygen Saturation - - Inhaled Oxygen Concentration 121 kg (266 lb) 10/28/2019 2:44 PM CDT Weight 165.1 cm (5' 5") 10/28/2019 2:44 PM CDT Height 44.26 10/28/2019 2:44 PM CDT Body Mass Index Plan of Treatment Care Team Description Date Type Specialty Americo Mckeon MD [address] [place] [address] [phone] 06/02/2020 Ancillary Obstetrics and Gyne cology Procedure Americo Mckeon MD [address] [place] [address] [phone] 06/02/2020 Office Visit Obstetrics and Gyne cology Health Maintenance Due Date Last Done Comments INFLUENZA VACCINE 03/18/2020 CHLAMYDIA SCREENING 09/15/2020 09/15/2019, 04/15/2018, 04/11/2017, Additional history exists CERVICAL CANCER SCREENING 09/15/2022 09/15/2019 Procedures Comments Procedure Name Priority Date/Time Associated Diag nosis COVID-19 QUALITATIVE PCR Routine 03/20/2020 COVID -19 virus infection 1:17 PM CDT COVID-19 QUALITATIVE PCR Routine 02/25/2020 COVID -19 virus infection 1:11 PM CDT Chills Anosmia CREATINE KINASE, TOTAL Routine 12/22/2019 Hypothy roidism, (CPK) 3:28 PM CDT unspecified type Myopathy VITAMIN B12 LEVEL Routine 12/22/2019 Other fatigu e 3:28 PM CDT VITAMIN D 25 HYDROXY Routine 12/22/2019 Other fat igue LEVEL 3:28 PM CDT CBC WITH PLATELET AND Routine 12/22/2019 Other fa tigue DIFFERENTIAL 3:28 PM CDT COMPREHENSIVE METABOLIC Routine 12/22/2019 Other fatigue PANEL 3:28 PM CDT T3, FREE Routine 12/22/2019 Hypothyroidism, 3:28 PM CDT unspecified type T4, FREE Routine 12/22/2019 Hypothyroidism, 3:28 PM CDT unspecified type THYROID STIMULATING Routine 12/22/2019 Hypothyroi dism, HORMONE 3:28 PM CDT unspecified type OSBALDO IFA, W/REFL TO Routine 12/22/2019 Myopathy TITER/PATTERN/CASCADE 3:28 PM CDT RHEUMATOID FACTOR Routine 12/22/2019 Myopathy 3:28 PM CDT CYCLIC CITRULLINATED Routine 12/22/2019 Myopathy PEPTIDE AB, IGG 3:28 PM CDT TRICHOMONAS VAGINALIS Routine 09/15/2019 RNA, QUALITATIVE, TMA, 2:49 PM STATE TESTED NURSING ASSISTANT PAP VIAL CHLAMYDIA/N. GONORRHOEAE Routine 09/15/2019 RNA, TMA 2:49 PM STATE TESTED NURSING ASSISTANT THINPREP TIS PAP REFLEX Routine 09/15/2019 HPV MRNA E6/E7 2:49 PM STATE TESTED NURSING ASSISTANT GRAM STAIN STAT 05/29/2019 8:52 AM CDT URINE CULTURE STAT 05/29/2019 8:52 AM CDT HCG QUALITATIVE, URINE STAT 05/29/2019 SCREEN 8:26 AM CDT URINALYSIS SCREEN AND STAT 05/29/2019 MICROSCOPY, WITH REFLEX 8:26 AM CDT TO CULTURE after 05/25/2019 Results * COVID-19 qualitative PCR (03/20/2020 1:17 PM CDT) Only the most recent of 2 results within the time period is included. Interpretation Negative results do not VIDES preclude 2019-nCoV infection [facility] and should not be used as the HOSPITAL sole basis for treatment or other patient management decisions. Negative results must be combined with clinical observations, patient history, and epidemiological information. COVID-19 Not-Detected Not-Detected [place] qualitative PCR [facility] result HOSPITAL COVID-19 See link below for PDF Lab [place] qualitative PCR ReportComment: Case Number: [facility] [id number] HOSPITAL Specimen Nasopharyngeal swab Performing Organization Address City/State/ZIP Code P jairo Number [facility] DEPARTMENT OF [address] [place] [address] PATHOLOGY AND GENOMIC MEDICINE [address] * OSBALDO IFA, W/REFL TO TITER/PATTERN/CASCADE (12/22/2019 3:28 PM CDT) OSBALDO screen NEGATIVE NEGATIVE [facility] Comment: [facility] OSBALDO IFA is a first line screen ING II for detecting the presence of up to approximately 150 autoantibodies in various autoimmune diseases. A negative OSBALDO IFA result suggests an OSBALDO-associated autoimmune disease is not present at this time, and does not reflex further. If there is high clinical suspicion for Sjogren's syndrome, testing for anti-SS-A/Ro antibody should be considered. Anti-Allie-1 antibody should be considered for clinically suspected inflammatory myopathies. AC-0: Negative International Consensus on OSBALDO Patterns (https://doi.org/10.1515/cclm- 3295-1756) For additional information, please refer to http://Healthcare Bluebook.Vaccibody/faq/JTC752 (This link is being provided for informational/ educational purposes only.) Specimen Resulting Agency Comment Performing Organization Information: Site ID: IG [facility] Address: [address] [place] [phone] Director: Dr. Eddy Ballard Performing Organization Address City/[facility] [email or web address] [address] II * Cyclic citrullinated peptide antibody, IgG (12/22/2019 3:28 PM CDT) [facility] Cyclic <16 UNITS [facility] citrullin Comment: DIAGNOSTICS-[facility] peptide Ab Reference Range ING II Negative: <20 Weak Positive: 20-39 Moderate Positive: 40-59 Strong Positive: >59 Specimen Blood Resulting Agency Comment Performing Organization Information: Site ID: IG [facility] Address: [address] [place] [phone] Director: Dr. Eddy Ballard Performing Organization Address [facility] P [facility] [email or web address] [address] II * Vitamin D 25 hydroxy level (12/22/2019 3:28 PM CDT) Pathologist [facility] Vitamin D, 12 (L) 30 - 100 ng/mL [facility] 25-hydroxy Comment: DIAGNOSTICS Vitamin D Status VIDES 25-OH Vitamin D: Deficiency: <20 ng/mL Insufficiency: 20 - 29 ng/mL Optimal: > or = 30 ng/mL For 25-OH Vitamin D testing on patients on D2-supplementation and patients for whom quantitation of D2 and D3 fractions is required, the QuestAssureD(TM) 25-OH VIT D, (D2,D3), LC/MS/MS is recommended: order code 83148 (patients >2yrs). See Note 1 Note 1 For additional information, please refer to http://Healthcare Bluebook.Vaccibody/faq/CYF800 (This link is being provided for informational/ educational purposes only.) Specimen Blood Resulting Agency Comment Performing Organization Information: Site ID: RGA [facility]: [facility] Address: [address] [place] [phone] Director: Eddy Ballard Performing Organization Address City/[facility] P jairo Number [facility] [employer] [place] [address] [place] [phone] * CBC with platelet and differential (12/22/2019 3:28 PM CDT) [facility] WBC 8.7 3.8 - 10.8 [facility] Thousand/uL DIAGNOSTICS [place] RBC 4.61 3.80 - 5.10 [facility] Million/uL DIAGNOSTICS [place] HGB 13.4 11.7 - 15.5 g/dL [facility] [place] HCT 40.0 35.0 - 45.0 % [facility] [place] MCV 86.8 80.0 - 100.0 fL [facility] [place] MCH 29.1 27.0 - 33.0 pg [facility] [place] MCHC 33.5 32.0 - 36.0 g/dL [facility] [place] RDW 13.3 11.0 - 15.0 % [facility] [place] Platelet count 370 140 - 400 [facility] Thousand/uL DIAGNOSTICS [place] MPV 11.3 7.5 - 12.5 fL [facility]ST[facility] [place] Neutrophils, 5,916 1,500 - 7,800 [facility] absolute cells/uL DIAGNOSTICS [place] Lymphocytes, 1,871 850 - 3,900 cells/uL [facility] absolute DIAGNOSTICS [place] Monocytes, 757 200 - 950 cells/uL [facility] absolute DIAGNOSTICS [place] Eosinophils, 96 15 - 500 cells/uL [facility] absolute DIAGNOSTICS [place] Basophils, 61 0 - 200 cells/uL [facility] absolute DIAGNOSTICS [place] Neutrophils 68 % [facility] [place] Lymphocytes 21.5 % [facility] [place] Monocytes 8.7 % [facility] [place] Eosinophils 1.1 % [facility] [place] Basophils + RC 0.7 % [facility] [place] Specimen Blood Resulting Agency Comment Performing Organization Information: Site ID: RGA [facility]: [facility] Address: [address] [place] [phone] Director: Eddy Ballard Performing Organization Address [facility] P jairo Number [email or web address] [place] [address] [place] [address] 72 * Rheumatoid factor (12/22/2019 3:28 PM CDT) Rheumatoid <14 <14 IU/mL [facility] [employer] DIAGNOSTICS [place] Specimen Blood Resulting Agency Comment Performing Organization Information: Site ID: [facility] Address: [address] [place] [phone] Director: Eddy Ballard Performing Organization Address City/State/ZIP Code P jario Number [facility] [employer] [place] [address] 72 * T3, free (12/22/2019 3:28 PM CDT) T3, free 3.6 2.3 - 4.2 pg/mL [facility] [place] Specimen Blood Resulting Agency Comment Performing Organization Information: Site ID: [facility] Address: [address] [place] [phone] Director: Eddy Ballard Performing Organization Address City/[facility]/ZIP [facility] P jairo Number [email or web address] [address] [address] * Thyroid stimulating hormone (12/22/2019 3:28 PM CDT) Pathologist [facility] TSH 2.74 mIU/L [facility] Comment: DIAGNOSTICS Reference Range [place] > or = 20 Years 0.40-4.50 Ranges First trimester 0.26-2.66 Second trimester 0.55-2.73 Third trimester 0.43-2.91 Specimen Blood Resulting Agency Comment Performing Organization Information: Site ID: [facility]GA [facility] Address: [address] [place] [phone] Director: Eddy Ballard Performing Organization Address City/[facility]/ZIP [facility] P jairo Number [facility] [employer] [place] [address] 72 * T4, free (12/22/2019 3:28 PM CDT) T4, free 1.2 0.8 - 1.8 ng/dL [facility]ST[facility] [place] Specimen Blood Resulting Agency Comment Performing Organization Information: Site ID: [facility] Address: [address] [place] [phone] Director: Eddy Ballard Performing Organization Address City/State/ZIP Code P jairo Number [facility] [employer] [address] [address] * Vitamin B12 level (12/22/2019 3:28 PM CDT) [facility] Vitamin B12 303 200 - 1,100 pg/mL [facility] Comment: DIAGNOSTICS Please Note: Although the [place] reference range for vitamin B12 is 200-1100 pg/mL, it has been reported that between 5 and 10% of patients with values between 200 and 400 pg/mL may experience neuropsychiatric and hematologic abnormalities due to occult B12 deficiency; less than 1% of patients with values above 400 pg/mL will have symptoms. Specimen Blood Resulting Agency Comment Performing Organization Information: Site ID: [facility] Address: [address] [place] [phone] Director: Eddy Ballard Performing Organization Address City/[facility] P jairo Number [facility] [employer] [place] [phone] 72 * Creatine kinase, total (CPK) (12/22/2019 3:28 PM CDT) [facility] Creatine kinase 51 29 - 143 U/L [facility] Specimen Blood Resulting Agency Comment Performing Organization Information: Site ID: [facility]GA [facility] Address: [address] [place] [phone] Director: Eddy Ballard Performing Organization Address [facility] P jairo Number [employer] [place] [phone] * Comprehensive metabolic panel (12/22/2019 3:28 PM CDT) [facility] Glucose 96 65 - 99 mg/dL [facility] Comment: DIAGNOSTICS Fasting [place] reference interval BUN 9 7 - 25 mg/dL [facility] Creatinine 0.51 0.50 - 1.10 mg/dL [facility]ST[facility] [place] EGFR Non-Afr. 136 > OR = 60 [facility] [place] mL/min/1.73m2 DIAGNOSTICS [place] EGFR 157 > OR = 60 [facility] [place] mL/min/1.73m2 [facility] BUN/creatinine NOT APPLICABLE 6 - 22 (calc) [facility] Sodium 138 135 - 146 mmol/L [facility] Potassium 4.1 3.5 - 5.3 mmol/L [facility] [place] Chloride 106 98 - 110 mmol/L [facility] [place] CO2 28 20 - 32 mmol/L [facility] [place] Calcium 9.0 8.6 - 10.2 mg/dL [facility] [place] Protein 6.6 6.1 - 8.1 g/dL [facility] [place] Albumin, S 4.1 3.6 - 5.1 g/dL [facility] [place] Globulin, total 2.5 1.9 - 3.7 g/dL [facility] (calc) DIAGNOSTICS [place] Albumin/globuli 1.6 1.0 - 2.5 (calc) [facility] n ratio DIAGNOSTICS [place] Total bilirubin 0.4 0.2 - 1.2 mg/dL [facility] [place] Alkaline 73 31 - 125 U/L [facility] phosphatase DIAGNOSTICS [place] AST 12 10 - 30 U/L [facility] [place] ALT 11 6 - 29 U/L [facility] [place] Specimen Blood Resulting Agency Comment Performing Organization Information: Site ID: [facility]GA [facility] Address: [address] [place] [phone] Director: Eddy Ballard Performing Organization Address City/[facility]/ZIP Code P jairo Number [facility] [employer] [address] [address] * Trichomonas vaginalis RNA, Qualitative, TMA, PAP Vial (09/15/2019 2:49 PM STATE TESTED NURSING ASSISTANT) Trichomonas NOT DETECTED NOT DETECTED [facility] vaginalis, ql Comment: DI[facility]ICS[facility] tma, pap vial The analytical performance ING II characteristics of this assay have been determined by ralali. The modifications have not been cleared or approved by the FDA. This assay has been validated pursuant to the CLIA regulations and is used for clinical purposes. For additional information, please refer to http://education.Stackify.com/ faq/Trichomonastma (This link is being provided for information/ educational purposes only.) Specimen Resulting Agency Comment Performing Organization Information: Site ID: IG [facility] Address: [address] [place] [address] Director: Dr. Eddy Ballard Performing Organization Address City/[facility]/ZIP Code P jairo Number [employer] [facility] [address] [place] [address] II * CHLAMYDIA/N. GONORRHOEAE RNA, TMA (09/15/2019 2:49 PM STATE TESTED NURSING ASSISTANT) Chlamydia NOT DETECTED NOT DETECTED [facility] trachomatis [facility] RNA, TMA ING II Neisseria NOT DETECTED NOT DETECTED [employer] gonorrhoeae [facility] RNA, TMA ING II (Always Comment: [facility] message) The analytical performance DIAGNOSTIC S-AVANI characteristics of this ING II assay, when used to test SurePath(TM) specimens have been determined by ralali. The modifications have not been cleared or approved by the FDA. This assay has been validated pursuant to the CLIA regulations and is used for clinical purposes. For additional information, please refer to https://education.Plainlegal/faq/DCI029 (This link is being provided for information/ educational purposes only.) Specimen Resulting Agency Comment Performing Organization Information: Site ID: IG [facility] Address: [address] [place] [phone] Director: Dr. Eddy Ballard Performing Organization Address City/State/ZIP Code P jairo Number [facility] [employer] [place] [address] II * THINPREP TIS PAP REFLEX HPV mRNA E6/E7 (09/15/2019 2:49 PM STATE TESTED NURSING ASSISTANT) Pathologist [facility] Clinical Comment: PT HAS NEXPLANON [employer] DI[facility] [place] Date of last NONE GIVEN [facility] menstrual DIAGNOSTICS period [place] Prev. pap: NONE GIVEN [facility] [place] Prev. bx: NONE GIVEN [facility] [place] Source [employer] DIAGNOSTICS [place] Statement of Comment: [facility] adequacy Satisfactory for evaluation. DI[facility]NOST ICS Endocervical/transformation [place] zone component present. Interpretation/ Comment: Negative for [facility] result: intraepithelial lesion or DIAGNOSTICS malignancy. [place] Infection Comment: [employer] Fungal organisms DIAGNOSTICS morphologically consistent [place] with Ryanne spp. Comment Comment: [facility] This Pap test has been DIAGNOSTICS evaluated with computer CoTweet technology. [employer]olog[employer] Comment: [facility] t CMP, CT(ASCP) DIAGNOSTICS CT screening location: [employer] [place] [address] [address], [facility] [address] Comment Comment: [facility] EXPLANATORY NOTE: DIAGNOSTICS The Pap is a screening test [place] for cervical cancer. It is not a diagnostic test and is subject to false negative and false positive results. It is most reliable when a satisfactory sample, regularly obtained, is submitted with relevant clinical findings and history, and when the Pap result is evaluated along with historic and current clinical information. Specimen Resulting Agency Comment Performing Organization Information: Site ID: [facility] Address: [address] [place] [address] Director: Eddy Ballard Performing Organization Address City/[facility] P jairo Number [facility] [employer] DIAGNOSTICS [place] [address] [place], [place] [address] * Gram stain (05/29/2019 8:52 AM CDT) Gram stain Many WBC's [place] result Many Gram negative rods [facility] Comment: HOSPITAL Specimen Information Specimen Source: Urine Specimen Site: Random void Specimen Urine - Random void Performing Organization Address City/[facility] P jairo Number [facility] [address] PATHOLOGY AND GENOMIC MEDICINE [address] * Urine culture (05/29/2019 8:52 AM CDT) Urine culture Mixed Gram positive mayito [place] isolate 10-5 cfu/ml [facility] () [facility] Comment: Specimen Information Specimen Source: Urine Specimen Site: Random void Urine culture Streptococcus group B [place] isolate 10-3 cfu/ml [facility] () [facility] Specimen Urine - Random void Performing Organization Address [facility] P jairo Number [facility] [place] [address] PATHOLOGY AND GENOMIC MEDICINE [address] * Urinalysis screen and microscopy, with reflex to culture (05/29/2019 8:26 AM CDT) Specimen site Random void [facility] Color, UA Mindy [facility] Appearance, UA Cloudy [facility] Specific 1.038 (H) 1.001 - 1.035 [place] [facility] pH, UA 5.0 5.0 - 8.5 [facility] Protein, UA 2+ (A) Negative [facility] Glucose, UA Negative Negative [facility] Ketones, UA 1+ (A) Negative [facility] Bilirubin, UA Negative Negative [facility] Blood, UA Moderate (A) Negative [facility] Nitrite, UA Positive (A) Negative [facility] Urobilinogen, 4.0 (A) <2.0 [facility] Leukocyte Small (A) Negative [place] esterase, [facility] Epithelial 18 /HPF [place] cells, [facility] WBC, UA >180 (H) 0 - 4 /HPF [facility] RBC, UA 167 (H) 0 - 5 /HPF [facility] Bacteria, UA Moderate (A) None seen [facility] WBC clumps, UA Moderate (A) [facility] [place] Yeast, UA None seen [facility] [place] Yeast with None seen [place] pseudohyphae, [facility] Specimen Urine Performing Organization Address City/[facility] P [place] Number [facility] [place] [address] PATHOLOGY AND GENOMIC MEDICINE [address] * hCG qualitative, urine screen (05/29/2019 8:26 AM CDT) hCG NegativeComment: Sensitivity [place] qualitative, of HCG test: 25 mIU/mL [facility] Specimen Performing Organization Address City/[facility] [place] [address] PATHOLOGY AND GENOMIC MEDICINE [address] after 05/25/2019 Insurance Type Payer Benefit Subscriber ID Effective Phone Address Plan / Dates Group PPO [facility] UMR HM [id number] 2018-P BENEFIT resent PLAN PPO CIGNA C[employer]/[place] [id number] 2020-P GIANCE resent BENEFIT PLAN Advance Directives For more information, please contact: [phone] 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
== END 2020-05-25 02:33 | disposition home or self-care (01) ==
LOC: ER 01:30
DX: O20.0 Threatened abortion (principal); O23.41 Unspecified infection of urinary tract in pregnancy, first trimester
CPT/HCPCS: 36415; 81001; 84702; 85025; 99283